=== PATIENT | female | born 1985 | race Caucasian/White ===

== ENCOUNTER 2024-05-31 02:59 | Inpatient (IN) | payer BC, SELFPAY ==
[2024-05-30 20:47] VITALS: BP 111/77
[2024-05-30 21:31] LABS: % Basophils 0.4 % (0-2); % Eosinophils 0.4 % (0-6); % Immature Granulocytes 0.4 % (0-0.5); % Lymphocytes 22.4 % (20.5-51.1); % Monocytes 12.9 % (1.7-9.3); % Neutrophils 63.5 % (42.2-75.2); Absolute Monocytes 0.6 10^3/uL (0.1-0.6); Hematocrit 33.7 % (37.0-47.0); Hemoglobin 12.6 g/dL (12.0-16.0); Mean Corp Hgb Conc. 37.4 g/dL (33.0-37.0); Mean Corpuscular Hgb 37.8 pg (27.0-31.0); Mean Corpuscular Volume 101.2 fL (81.0-99.0); Mean Platelet Volume 11.5 fL (7.4-10.4); Nucleated Red Blood Cells % 0 %; Platelet Count 90 10^3/uL (130-400); Red Blood Cell Count 3.33 10^6/uL (4.20-5.40); Red Cell Dist. Width 16.5 % (11.5-14.5); White Blood Cell Count 4.7 10^3/uL (4.8-10.8)
[2024-05-30 21:42] LABS: HCG, Serum Qualitative Screen Negative
[2024-05-30 21:56] LABS: INR 1.49; PT 17.8 Sec (11.4-14.6)
[2024-05-30 21:57] LABS: ALT (SGPT) 52 U/L (0-35); AST (SGOT) 268 U/L (14-36); Albumin 3.2 g/dl (3.5-5.0); Alkaline Phosphatase 160 U/L (38-126); Blood Urea Nitrogen 5 mg/dl (7-17); Calcium 8.6 mg/dl (8.4-10.2); Carbon Dioxide 30 mmol/L (22-30); Chloride 87 mmol/L (98-107); Glucose 93 mg/dl (70-99); Potassium 2.7 mmol/L (3.5-5.1); Sodium 128 mmol/L (135-145); Total Bilirubin 21.6 mg/dl (0.2-1.3); Total Protein 6.1 g/dl (6.3-8.2); eGFR > 60.00
[2024-05-30 22:16] VITALS: BP 107/73
--- NOTE | 2024-05-30 22:30 | EDRN ---
Patient roomed, went in to see patient and reviewed blood work, informed Dr. Hatch of the abnormal labs the patient has and patients status, he will be in to see her.
[2024-05-30 22:41] VITALS: BMI 25.8
[2024-05-30 23:00] VITALS: BP 97/64
[2024-05-30] MEDS: NSS 500 IV (23:20)
[2024-05-30] MEDS: THIAMINE INJECTION 100 MG IV (23:21)
[2024-05-30 23:43] LABS: Ammonia 10 umol/L (9-30)
[2024-05-30 23:45] LABS: Lipase 401 U/L (23-300); Magnesium 1.7 mg/dl (1.6-2.3)
[2024-05-30] MEDS: KCL 270 MEQ IV (23:45)
[2024-05-30] MEDS: FOLVITE 50.2 MG IV (23:45)
[2024-05-31] VITALS (22 sets, daily range): BP systolic 86–112; BP diastolic 57–80; BMI 25.8; BMI 25.7
--- NOTE | 2024-05-31 00:31 | ED.GENMED ---
History of Present Illness
General
Chief Complaint: Dizziness
Source: patient, records and spouse
Exam Limitations: none
Time Seen by Provider: 05/30/24 22:27
Nursing documentation reviewed up to this point in time: agreed with
History of Present Illness
History of Present Illness:
38-year-old female with past medical history of alcohol abuse who presents to the emergency room for evaluation of jaundice, nausea, vomiting. Patient reports that she had a distant history of alcohol use and was sober for 2 years but over the past
few months has relapsed and has been drinking quite heavily. She says that about a week ago she noticed that she was becoming jaundiced; she says she stopped drinking at that point and has not had alcohol in the past week. She says that over the
past week jaundice has become more pronounced and she has had nausea, vomiting; she says she is having difficulty keeping food or liquids down. She says that she has noticed dark urine. She says that she is having some lightheadedness. She says
that she has had this in the past related to 'liver problems' related to alcohol use. She denies any abdominal pain. She denies any fevers or chills. She denies any diarrhea. She denies any other complaints on review of systems.
Review of Systems
Review of Systems
All Other Systems: ROS reviewed and negative except as documented in HPI and ROS
Constitutional: Reports fatigue; Denies fever or chills
Respiratory: Denies cough or trouble breathing
Cardiac: Denies chest pain
ABD/GI: Reports abdominal pain, nausea and vomiting; Denies diarrhea
: Reports dark urine; Denies dysuria or flank pain
Musculoskeletal: Denies neck pain or back pain
Neurological: Reports dizzy; Denies headache
Phy Exam
Physical Exam
Physical Exam:
General: Awake, alert, oriented
Head: Normocephalic, atraumatic
Eyes: Scleral icterus; pupils equal round and reactive to light bilaterally
Throat: Airway intact, dry mucous membranes
Neck: Trachea midline, supple without meningismus
Lungs: Clear to auscultation bilaterally, no wheezing, rales, rhonchi
Heart: Regular rate and rhythm, no murmurs, gallops, or rubs
Abd: Soft, non distended, mild right upper quadrant tenderness, palpable hepatomegaly
Neuro: No gross deficits
Skin: Jaundiced
Extremities: Trace edema on the ankles, extremities are warm well-perfused
Scores
Heart Failure Risk
Heart Failure Risk Score: Not Applicable
Heart Score for Chest Pain Patients
STEMI patient?: Not applicable
Withdrawal Assessment of Alcohol
Withdrawal Assessment Completed?: Not applicable
Course
Orders/Labs/Results
Orders:
Orders
05/30/24 20:52
Electrocardiogram (*1) Urgent
Reason for Study: Vertigo / Dizzy
EKG- Treatment ONCE
Test Result ONCE
05/30/24 21:11
Alcohol Urgent
Complete Blood Count/With Diff Urgent
Comprehensive Metabolic Panel Urgent
HCG, Serum Qualitative Screen Urgent
Lipase Urgent
Comment: ADD ON
Magnesium Urgent
Comment: ADD ON
Prothrombin Time Urgent
05/30/24 23:00
FOLic ACID [Folvite] 1 mg 0.9% Sodium Chloride 50 ml [Nss] 50 ml IV ONCE
Flush (0.9% Sodium Chloride) [Flush (Nss)] See Dose Instructions IV PER PROTOCOL
05/30/24 23:09
Add On- LAB Urgent
Tests Added?: lipase, magnesium
0.9% Sodium Chloride 500 ml [Nss] 500 ml IV BOLUS
Thiamine Injection 100 mg IV NOW STA
05/30/24 23:13
Potassium Chloride [KCl] 40 meq 0.9% Sodium Chloride 250 ml [Nss] 250 ml IV NOW
05/30/24 23:17
Ammonia Urgent
05/31/24 00:00
US Abdomen Complete/Upper Urgent
Reason For Exam: jaundice
05/31/24 00:32
Add On- LAB Urgent
Tests Added?: alcohol level
05/31/24 01:23
CT Abd/pelvis Angio W/wo Iv Urgent
Comment:
Reason For Exam: jaundice, findings c/f portal vein thrombus on US
05/31/24 01:39
GASTROINTESTINAL CONSULT Urgent
Consulting Provider: Lyudmila Stroud
Was physician already notified: Yes
Abnormal Lab Results
05/30/24
21:11
WBC 4.7 L 10^3/uL
(4.8-10.8)
RBC 3.33 L 10^6/uL
(4.20-5.40)
Hct 33.7 L %
(37.0-47.0)
MCV 101.2 H fL
(81.0-99.0)
MCH 37.8 H pg
(27.0-31.0)
MCHC 37.4 H g/dL
(33.0-37.0)
RDW 16.5 H %
(11.5-14.5)
Plt Count 90 L 10^3/uL
(130-400)
MPV 11.5 H fL
(7.4-10.4)
Absolute Lymphs (auto) 1.0 L 10^3/uL
(1.2-3.4)
Monocytes % 12.9 H %
(1.7-9.3)
PT 17.8 H Sec
(11.4-14.6)
Sodium 128 L mmol/L
(135-145)
Potassium 2.7 L* mmol/L
(3.5-5.1)
Chloride 87 L mmol/L
(98-107)
BUN 5 L mg/dl
(7-17)
Total Bilirubin 21.6 H* mg/dl
(0.2-1.3)
AST 268 H U/L
(14-36)
ALT 52 H U/L
(0-35)
Alkaline Phosphatase 160 H U/L
(38-126)
Total Protein 6.1 L g/dl
(6.3-8.2)
Albumin 3.2 L g/dl
(3.5-5.0)
Lipase 401 H U/L
(23-300)
05/30/24 21:11
05/30/24 21:11
Vital Signs
Initial and Last Documented VS:
Initial Vital Signs
Temp Pulse Resp BP Pulse Ox
36.8 C 83 18 111/77 98
05/30/24 20:47 05/30/24 20:47 05/30/24 20:47 05/30/24 20:47 05/30/24 20:47
Last Documented Vital Signs
Temp Pulse Resp BP Pulse Ox
36.8 C 85 16 97/64 96
05/30/24 20:47 05/30/24 23:15 05/30/24 23:15 05/30/24 23:00 05/30/24 23:15
MDM/Problems Addressed
Differential Diagnosis Includes:
Alcoholic hepatitis, biliary obstruction, malignancy, cirrhosis
MDM/Problems Addressed:
38-year-old female presents for evaluation of jaundice associate with nausea and vomiting in the setting of recent alcohol use. Vitals normal. Exam as above. Will check labs including a CBC and a CMP. Check INR. Will check lipase and hCG.
Check an EKG. Check upper abdominal ultrasound. Reassess after the above.
Labs reviewed: CBC shows thrombocytopenia with a platelet count of 90. INR normal. CMP shows hyponatremia, significant hypokalemia with a potassium of 2.7. T. bili 21.6, AST and ALT elevated to 268/52 respectively. Lipase 401, marginally
elevated. hCG negative. Awaiting ultrasound. Clinical suspicion at this point is acute alcoholic hepatitis. Replete potassium, added magnesium. Treat with thiamine and folate. Fluids in progress.
Ultrasound called back by radiology: Positive for portal venous thrombosis. Will follow-up with CTA with delayed phase imaging. Case discussed with GI�treatment with anticoagulation in the setting of thrombocytopenia will depend on acuity of
thrombus, will hold anticoagulant for now pending CTA they will evaluate in a.m. regarding need for anticoagulation. Case discussed with hospitalist for admission.
Chronic conditions affecting care:
Alcohol abuse
*Radiology
Radiology exam reviewed: radiology read reviewed
*Pulse Oximetry
Patient hypoxic: no
*EKG
Interpreted by ED Provider?: Yes
Heart Rate: 87
Rate: normal
Rhythm: sinus
[place]: normal axis
Interval: normal interval
QRS Pattern: normal QRS
Ischemia: non-specific ST changes
*Critical Care Note
Total Time (30-74mins, 75-104mins- exclusive of procedures): Not Applicable
Data Reviewed
Review of Other/Old Records Reveals: Labs and Records
Source: patient, records and spouse
Patient Management
Discussion with other providers: Hospitalist (Discussed with hospitalist) and [facility] (Discussed with gastroenterology)
Escalation/DeEscalation of care consider admission/obs:
Admission indicated
ED Attending Note
-
Portions of this chart may have been created with voice recognition software.� Occasional wrong word or��sound alike� substitutions may have occurred due to the inherent limitations of voice recognition software.
Discharge Plan
Departure
Patient Disposition: Admit
Date of Disposition: 05/31/24
Time of Disposition: 01:44
Admit to doctor: Anneliese
Presentation/result/management discussed w/ accepting MD/DO: Hospitalist
Discharge Problem:
Alcoholic hepatitis, Portal vein thrombosis
Prescriptions:
No Action
trazodone 50 mg Tablet
50 mg PO HS
hydroxyzine HCl 25 mg Tablet
25 mg PO PRN PRN (Reason: anxiety)
Referrals:
KAYE GANT MD [Family Provider] -
Interventions
Interventions:
*General Assessment Last Done: 05/30/24 20:47
*Neglect/Abuse Screening Last Done: 05/30/24 20:47
ED- Fall Risk Assessment Last Done: 05/30/24 23:03
ED- Neurological Assessment Last Done: 05/30/24 23:03
ED- Cardiac Assessment Last Done: 05/30/24 23:03
Discharge Date and Time
Print Language: CROATIAN
[2024-05-31 01:40] LABS: Alcohol None Detected
--- NOTE | 2024-05-31 02:25 | HPS.HSE ---
Addendum entered and electronically signed by Papi Coy MD 05/31/24 12:53:
CT Abd/pelvis Angio W/wo Iv
IMPRESSION:
- Portal veins opacify normally with no evidence of portal venous thrombosis
1).There is mild hazy peripancreatic inflammatory stranding with small volume ascites along the anterior pararenal fascia bilaterally suggesting pancreatitis
2).There is hepatomegaly (22cm) with diffuse fatty infiltration of the liver as well as a nodular appearance of the liver on arterial phase imaging suggesting superimposed cirrhotic changes
There is associated splenomegaly with splenic length of 15 cm such as may be seen with portal hypertension
3). Small volume ascites in the pelvis
Addendum entered and electronically signed by Papi Coy MD 05/31/24 12:47:
Correction of typo
Hepatitis with reverse AST and ALT ratio suspect acute ETOH hepatitis Other DDX: acute PVT
Maddrey's DF 39 ( PT 17.8, TB 21,6 ) <del>0</del>)
- poor prognosis
- To consider steroids ( indicate Glucocorticoid if DF > 32 ) <del>0</del>
- GI consulted
Original Note:
Family Physician
-
Family Physician: KAYE GANT MD
Chief Complaint
-
jaundice
History of Present Illness
HPI
38F HX ETOH use disorder seen at ER for evalaution of Jauncice.
- Noted jaundice since last week and also very dark urine
- reports N/V, unable to keep the food and liquid down
- Stopped ETOH last week; NEG ETOH at ER
- reports relapse ETOH use disordr for past few months after sober for 2 yrs
She denies any abdominal pain.
She denies any fevers or chills.
She denies any diarrhea.
Medical History
Past Medical History
Past Medical History: Reports Other
Additional Past Medical History:
ETOH use disorder
HX suggestive of ETOH Liver disporder
Past Surgical History: Reports Other
Social History
Alcohol: Daily (reports relapse ETOH use disordr for past few months after sober for 2 yrs)
Family History
Family History: Not pertinent
Allergies / Home Medications
Allergies reflects when Allergies were last updated in [facility].
Home Medications with original date entered in [facility]
Allergy/Medication List:
Allergies
Allergy/AdvReac Type Severity Reaction Status Date / Time
No Known Allergies Allergy Unverified 08/17/22 16:43
Home Medications
hydroxyzine HCl 25 mg tablet 25 mg PO PRN PRN anxiety 05/30/24
trazodone 50 mg tablet 50 mg PO HS 05/30/24
Review of Systems
-
Constitutional: Reports No Symptoms
EENT: Reports Other (jaundice )
Respiratory: Reports No Symptoms
Cardiac: Reports No Symptoms
Abdomen/GI: Reports No Symptoms
: Reports No Symptoms
Musculoskeletal: Reports No Symptoms
Skin: Reports See HPI
Neurological: Reports No Symptoms
Endocrine: Reports No Symptoms
Hematologic/Lymphatic: Reports No Symptoms
Psych: Reports No Symptoms
Physical Exam
Vital Signs
Vital Signs
Temp Pulse Resp BP Pulse Ox
98.2 F 85 16 97/64 96
05/30/24 20:47 05/30/24 23:15 05/30/24 23:15 05/30/24 23:00 05/30/24 23:15
Physical Exam
General: No Apparent Distress, Comfortable and Conversant
HEENT: Other (icteric sclera )
Respiratory: Clear
Cardiac: S1/S2 and Regular Rhythm
GI: Soft, Non Tender, Non Distended and Normal Bowel Sounds
Rectal: Deferred by Provider
Musculoskeletal: No Edema
Skin: Warm and Dry
Neuro: AO x 3
Psych: Calm
Laboratory Results
-
05/30/24 21:11
05/30/24 21:11
Laboratory Results
PT 17.8 Sec (11.4-14.6) H 05/30/24 21:11
INR 1.49 05/30/24 21:11
Total Bilirubin 21.6 mg/dl (0.2-1.3) H* 05/30/24 21:11
AST 268 U/L (14-36) H 05/30/24 21:11
ALT 52 U/L (0-35) H 05/30/24 21:11
Alkaline Phosphatase 160 U/L (38-126) H 05/30/24 21:11
Lipase 401 U/L (23-300) H 05/30/24 21:11
Data Reviewed
-
Diagnostic Radiology: Report Reviewed by me
Lab Data: Labs Reviewed by me
Impression/Plan
-
Reviewed VS: Afebrile HR 85 BP 97/64
Data
WC 4.7
Hgb 12.6 is at baseline
MCV 101
Plt 90 - was 123 in 2021
Na 128
K 2.7
Cl 87
unremarkable Cr and eGFR
INR 1.49
TB 21 - was 1.0 in 2021
AST 268
ALT 52
Lipase 401
Alb 3.2
NEG ETOH
RUQ US
main PVT , enlarged liver , enlarged spleen
No ascites
NO Prior hospitalist admission:
ASSESSMENT & PLAN
Hepatitis with reverse AST and ALT ratio suspect acute ETOH hepatitis Other DDX: acute PVT
Maddrey's DF 39 ( PT 17.8, TB 210)
- poor prognosis
- To consider steroids ( indicate Glucocorticoid if DF > 320
- GI consulted
Jaundice , Hyperbilirubinemia
Sono POS for main PVT
- CTA eval for acuity of thrombus,to decide in AM re anticoagulation
- await GI evaluation
Severe hypokalemia s/p IV K Richard 40 at ER due to N/V
- check Mg
- f/u K in AM
Last ETOH : 10 days ago
Relapse ETOH use disorder for past few months after sober for 2 yrs
- MSAS hi risk protocol
- Psych consult
Acute pancytopenia due to ETOH related BM suppression
Low platelets
- trend CBC
Hypotension suspect due to chr ETOH Liver plus volume depeltion
- Observe BP
- IVF
DVT Px: SCD
Code: Full
IMU
[2024-05-31] MEDS: NSS 1000 IV ×2 (03:56→17:31)
[2024-05-31 06:47] LABS: INR 1.75; PT 20.3 Sec (11.4-14.6)
--- NOTE | 2024-05-31 06:50 | EDRN ---
Patients BP has started trending down, last two pressures was 89/57 with a map of 68 and then 86/58 with a map of 68, patient has normal saline running at 60ml/hr, robertoer dawooded Shreya Cunningham NP who is covering telemetry, she is reviewing chart
and awaiting orders.
[2024-05-31 07:00] LABS: Hematocrit 28.6 % (37.0-47.0); Hemoglobin 10.6 g/dL (12.0-16.0); Mean Corp Hgb Conc. 37.1 g/dL (33.0-37.0); Mean Corpuscular Hgb 37.3 pg (27.0-31.0); Mean Corpuscular Volume 100.7 fL (81.0-99.0); Mean Platelet Volume 12.4 fL (7.4-10.4); Platelet Count 61 10^3/uL (130-400); Red Blood Cell Count 2.84 10^6/uL (4.20-5.40); Red Cell Dist. Width 16.5 % (11.5-14.5); White Blood Cell Count 3.7 10^3/uL (4.8-10.8)
--- NOTE | 2024-05-31 07:12 | EDRN ---
Report to KODY Petty
[2024-05-31] MEDS: ProAmatine 5 MG PO ×3 (07:22→17:30)
[2024-05-31] MEDS: FOLVITE 1 MG PO (07:22)
[2024-05-31] MEDS: THIAMINE INJECTION 200 MG IV ×3 (07:22→23:54)
[2024-05-31 07:23] LABS: ALT (SGPT) 43 U/L (0-35); AST (SGOT) 200 U/L (14-36); Albumin 2.4 g/dl (3.5-5.0); Alkaline Phosphatase 120 U/L (38-126); B-Hydroxybutyrate 1.01 mmol/L (0.02-0.27); Blood Urea Nitrogen 6 mg/dl (7-17); Calcium 7.7 mg/dl (8.4-10.2); Carbon Dioxide 29 mmol/L (22-30); Chloride 95 mmol/L (98-107); Estimated Creatinine Clearance > 125 ml/min; GGTP 325 U/L (12-43); Glucose 74 mg/dl (70-99); Lipase 252 U/L (23-300); Magnesium 1.6 mg/dl (1.6-2.3); Potassium 3.2 mmol/L (3.5-5.1); Sodium 131 mmol/L (135-145); Total Bilirubin 18.6 mg/dl (0.2-1.3); Total Protein 4.9 g/dl (6.3-8.2); eGFR > 60.00
--- NOTE | 2024-05-31 07:39 | EDRN ---
the pt was received from previous evening or night nurse supervisor RN, the pt is resting in stretcher in the lowest position, side rails up x2, call marquis within reach, HOB elevated, the pts blood pressure was running low with systolic pressure in the 80's, per Shreya
Octavio ORTHOPAEDIC NURSE this RN administered Midodrine, no c/o chest pain, no c/o SOB, AM medications administered, pt passed swallow screen, no c/o N/V/D, AM labs came back and provider notified, will continue to monitor the pt closely
[2024-05-31] MEDS: KCL ELIXIR 40 MEQ PO (08:20)
--- NOTE | 2024-05-31 08:24 | EDRN ---
PO potassium administered and tolerated by the pt
--- NOTE | 2024-05-31 10:15 | EDRN ---
provider changed the pts diet from clear liquid to regular diet, menu was given to the pt
--- NOTE | 2024-05-31 10:20 | W.PN.UPDATE ---
Update Note
Progress Note Update
Seen and examined independent of overnight physician. States of relapse since beginning of summer drinks multiple cans of white claw on daily basis. Denies any other's type of alcohol intake. Had a similar incident 4 years ago and was admitted to
[facility] for prolonged period of time. States of worsening jaundice for the past 1 week with change in color of urination and skin color. States of pruritus on the chest. States of some mild right upper quadrant abdominal pain. No nausea or
vomiting. Denies any hematemesis or melanotic stools.
General: No Apparent Distress, Comfortable and Conversant, jaundiced
HEENT: Other (icteric sclera )
Respiratory: Clear
Cardiac: S1/S2 and Regular Rhythm
GI: Soft, Non Tender, Non Distended and Normal Bowel Sounds
Rectal: Deferred by Provider
Musculoskeletal: No Edema
Skin: Warm and Dry, mild petechial rash on chest
Neuro: AO x 3
Psych: Calm
Suspected acute alcoholic hepatitis secondary to alcohol abuse
Alcohol abuse on a daily basis
Early onset of liver cirrhosis
-poor prognosis
-Follow CT abdomen pelvis imaging noted with hepatomegaly with fatty infiltration of the liver as well as nodular appearance. Associate splenomegaly with portal hypertension. Small volume ascites in the pelvis. Fortunately no PVT noted on final
CAT scan results.
-INR elevated 1.75. PT elevated. T. bili with mild downtrend. Mild improvement in AST.
-Elevated DF. Consider prednisolone. Will defer to GI. Long-term prognosis guarded
-Counseled on alcohol cessation. UDS pending.
Severe hypokalemia
Replete and monitor.
Last ETOH : 10 days ago
Relapse ETOH use disorder for past few months after sober for 2 yrs
- MSAS. Low risk of withdrawal at this point.
Acute pancytopenia due to ETOH related BM suppression
Low platelets
- trend CBC. Transfuse for hemoglobin less than 7. Check anemia panel.
Mild hyponatremia likely secondary dehydration and or alchol abuse and low solute intake
� Improving with IV fluids
Mild hypotension
-started on midodrine. Wean off if BP improves with IVF
DVT Px: SCD
Code: Full
--- NOTE | 2024-05-31 10:49 | EDRN ---
the pt pressed the call marquis and this RN entered the pts room, the pt stated that she needed to urinate, the pt was able to ambulate to the bathroom and back to the stretcher with no issues, the pt was able to provide a urine sample that was sent to
the lab, the pt is now resting in stretcher in the lowest position, side rails up x1, HOB elevated, no s/s of distress, NSS currently still running at 100cc/hour, VS WNL, no s/s of distress, Jovanny from [facility] currently at the pts bedside, the pt also
ordered breakfast, will continue to monitor the pt closely
[2024-05-31 11:05] LABS: Phosphorus 3.6 mg/dl (2.5-4.5)
[2024-05-31 11:18] LABS: Iron 68 ug/dl (37-170)
--- NOTE | 2024-05-31 11:24 | CON.GI ---
Addendum entered and electronically signed by Arjun Menendez MD 05/31/24 17:59:
I saw and examined the patient.
The SENIOR PROCUREMENT MANAGER or PA's note was reviewed and I agree with the note.
Comment: 38yo female with hx EtOH cirrhosis, seen by Dr Ruiz at [facility] following a prolonged hospitalization in 2019. Following that she quit EtOH and was stable from liver standpoint. She resumed drinking at beginning of this summer. Then she
quit about two weeks ago, but noted jaundice last week, weakness, lack of appetite. Labs notable for Bili 21, INR 1.7, Na 128. Her DF calculates to 52. She denies GI bleeding, change in mental status. She had varices noted on prior EGD but no
bleeding. Denies hx paracentesis.
REC:
Given her high DF, will start prednisolone to rx acute on chronic EtOH hepatitis.
No signs of infection
Advance diet as tolerated. If able to keep POs, and labs stable, can d/c with OP follow up with Dr Ruiz (and [facility] if she wishes local f/u)
Reinforced need to EtOH cessation. She is considering OP rehab with her counselor, which I supported
Check f/u LFTs, INR
Addendum entered and electronically signed by OLVIN Lees 05/31/24 16:37:
reviewed with Dr. menendez will add Prednisolone 40mg daily. Add hepatitis panel
Original Note:
Consultation
-
Date/Time Consultation Requested: 05/31/24 0130
Date/Time Consultation Performed: 05/31/24 1120
Requesting Provider: Jalen Hatch MD
Performing Provider: OLVIN Osborne, Arjun Menendez MD
Reason for Consultation: ETOH hepatitis /pancreatitis
Medical History
Chief Complaint / HPI
Chief Complaint: jaundice
History of Present Illness:
Pt is a 38yo with hx ETOH abuse presents to ER with jaundice, nausea, and vomiting. She admits to hx ETOH abuse with prior ETOH hepatitis/pancreatitis prior to 2019. She improved and did not recall need for steroids at that time. She admits to
recent relapse over last few months to no specific trigger. On admission she is noted with marked abnormal labs with Na 128, K 2.8, bili 21.6, AST 268, ALT 52, alk phos 160, hbg 10.6, MCV 100.7, platelets 61,000, INR 1.7, albumin 3.2, lipase 401.
US with HSM with fatty liver, CT with pancreatitis, hepatomegaly with nodular liver with concern for cirrhosis. Hepatosplenomegaly may be seen with portal HTN but no PVT and small volume ascites.
Pt admits to dark urine and decreased appetite but admits to feeling better this am. She denies dysphagia, GERD, abdominal pain, diarrhea, constipation, blood or black in stools.
Past Medical History
Past Medical History: Other (ETOH abuse with prior ETOH hepatitis/pancreatitis in past )
Social History
Tobacco: Non-Smoker
Alcohol: Chronic Alcoholic (last 1 week ago. admits to drinking high ETOH white claws up to 8 per day )
Drug: None
Personal:
Living: With Family
Employment: Employed
Family History
Family History: Reviewed & Not Pertinent
Allergies / Home Medications
Allergy/AdvReac Type Severity Reaction Status Date / Time
No Known Allergies Allergy Unverified 08/17/22 16:43
�Medication �Instructions �Recorded
hydroxyzine HCl 25 mg tablet 50 mg PO DAILYPRN PRN anxiety 05/30/24
trazodone 50 mg tablet 50 mg PO HS 05/30/24
Semaine Uti Releif 1 cap PO DAILY 05/31/24
bismuth subsalicylate 262 mg 2 tab PO DAILYPRN PRN gerd.stomach 05/31/24
chewable tablet (Pepto-Bismol) issuses
melatonin 3 mg tablet 6 mg PO HS 05/31/24
omeprazole 20 mg tablet,delayed 20 mg PO DAILY 05/31/24
release
peg 400-propylene glycol (PF) 0.4 1 drp BOTH EYES TIDPRN PRN dryness 05/31/24
%-0.3 % eye drops in a dropperette
(Systane (PF))
Review of Systems
-
History Source: Patient and Family
Constitutional: Reports Fatigue and Other (jaundice )
EENT: Reports No Symptoms
Respiratory: Reports No Symptoms
Abdomen/GI: Reports Nausea and Vomiting
: Reports Dark Urine
Musculoskeletal: Reports No Symptoms
Skin: Reports No Symptoms
Neurological: Reports Weakness
Endocrine: Reports No Symptoms
Hematologic/Lymphatic: Reports Bleeding
Vital Signs
Temp Pulse Resp BP Pulse Ox
97.8 F 69 18 108/80 99
05/31/24 11:07 05/31/24 11:07 05/31/24 11:07 05/31/24 11:07 05/31/24 11:07
Physical Exam
Exam
General: Well Developed, Well Nourished and No Apparent Distress
HEENT: Normocephalic and Other (jaundice )
Respiratory: Clear
Cardiac: Regular Rhythm and Other (no edema )
GI: Soft, Non Tender and Distended (minimal )
Musculoskeletal: No Clubbing and No Cyanosis
Skin: Warm and Dry
Neuro: Awake, Alert and AO x 3
Psych: Calm
Results
WBC 3.7 10^3/uL (4.8-10.8) L 05/31/24 06:25
Hgb 10.6 g/dL (12.0-16.0) L 05/31/24 06:25
Hct 28.6 % (37.0-47.0) L 05/31/24 06:25
MCV 100.7 fL (81.0-99.0) H 05/31/24 06:25
Plt Count 61 10^3/uL (130-400) L D 05/31/24 06:25
Absolute Neuts (auto) 3.0 10^3/uL (1.4-6.5) 08/19/24 21:11
PT 20.3 Sec (11.4-14.6) H 05/31/24 06:25
INR 1.75 05/31/24 06:25
Sodium 131 mmol/L (135-145) L 05/31/24 06:25
Potassium 3.2 mmol/L (3.5-5.1) L 05/31/24 06:25
Chloride 95 mmol/L (98-107) L 05/31/24 06:25
Carbon Dioxide 29 mmol/L (22-30) 05/31/24 06:25
BUN 6 mg/dl (7-17) L 05/31/24 06:25
Creatinine 0.6 mg/dL (0.6-1.0) 05/31/24 06:25
Calcium 7.7 mg/dl (8.4-10.2) L 05/31/24 06:25
Total Bilirubin 18.6 mg/dl (0.2-1.3) H* 05/31/24 06:25
AST 200 U/L (14-36) H 05/31/24 06:25
ALT 43 U/L (0-35) H 05/31/24 06:25
Alkaline Phosphatase 120 U/L (38-126) 05/31/24 06:25
Lipase 252 U/L (23-300) 05/31/24 06:25
Diagnostic Image Results:
05/31 US with with HSM with diffuse fatty liver
05/31 CT There is mild hazy peripancreatic inflammatory stranding with small volume ascites along the anterior pararenal fascia bilaterally suggesting pancreatitis
2).There is hepatomegaly (22cm) with diffuse fatty infiltration of the liver as well as a nodular appearance of the liver on arterial phase imaging suggesting superimposed cirrhotic changes
There is associated splenomegaly with splenic length of 15 cm such as may be seen with portal hypertension but no PVT
3). Small volume ascites in the pelvis
Prior GI Procedures:
EGD: none
Colonoscopy: [address] with cecum colitis
- The examined portion of the ileum was normal.
- Normal mucosa in the entire examined colon. Biopsied.
- The distal rectum and anal verge are normal on
retroflexion view.
Assessment / Plan
-
Pt is a 38yo with hx ETOH abuse presents to ER with jaundice, nausea, and vomiting. She admits to hx ETOH abuse with prior ETOH hepatitis/pancreatitis prior to 2019. She improved and did not recall need for steroids at that time. She admits to
recent relapse over last few months to no specific trigger. On admission she is noted with marked abnormal labs with Na 128, K 2.8, bili 21.6, AST 268, ALT 52, alk phos 160, hbg 10.6, MCV 100.7, platelets 61,000, INR 1.7, albumin 3.2, lipase 401.
US with HSM with fatty liver, CT with pancreatitis, hepatomegaly with nodular liver with concern for cirrhosis. Hepatosplenomegaly may be seen with portal HTN but no PVT and small volume ascites.
-ETOH hepatitis +/- underlying cirrhosis
-ETOH pancreatitis
-hx prior ETOH hepatitis/pancreatitis 2019 with treatment at [facility]- did not recall steroid use in past
-electrolyte imbalance (hyponatremia/hypokalemia)
-thrombocytopenia
-hypoalbuminemia
-coagulopathy
PLAN:
concern for ETOH hepatitis/pancreatitis +/- cirrhosis
will review with Dr. Menendez for starting prednisolone -- no current sign of infection and DF 52.2 based on 05/31 with with control on
MELD 3.0 28
pt and family agree with compliance for labs if needed after discharge
replete K per hospitalist
if steroids started will need lille score day 7 of therapy
discussed to consider follow up with hepatology at [facility] that she has seen in past
push nutrition resume diet and add supplement BID
avoid hepatotoxic medications and supplement and MUST AVOID ALL ALCOHOL
cont to trend labs with daily CBC, comp and INR
cont thiamine and folate
counseled on severity of disease process
updated spouse
-
-
Thank you for consultation and allowing me to participate in the patient's care. Please call the traffic division commanding officer GI physician during the after hours with any questions or concerns.
[2024-05-31 11:30] LABS: Amphetamines Negative (Negative); Barbiturates Negative (Negative); Benzodiazepines Negative (Negative); Buprenorphine Negative (Negative); Cocaine Negative (Negative); Marijuana Negative (Negative); Methadone Negative (Negative); Methamphetamines Negative (Negative); Opiates Negative (Negative); Phencyclidine Negative (Negative); Tricyclic Antidepressants Negative (Negative)
[2024-05-31 11:31] LABS: Percent Saturation 41 % (20-50); Total Iron Binding Capacity 163 ug/dl (265-497)
--- NOTE | 2024-05-31 11:53 | CM ---
CM reviewed chart.
CM introduced self and role. Spoke with patient at bedside.
She lives with her .
Dx: alcohol induced hepatitis, portal vein thrombosis
Patient is independent.
She drives. will provide transportation on discharge.
She lives in a multilevel home. She has 3 steps to enter.
She has family and friends for support.
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
She denied any +SDOH's.
PCP: Dr. Arjun Lucero
Pharmacy: [facility] in [place]
DISCHARGE DISPOSTION: CM consult placed for alcohol consumption. CM spoke with [facility] because patient was agreeable to talk with them about different resources. Patient to discharge to home when medically stable.
--- NOTE | 2024-05-31 13:25 | EDRN ---
provider was notified of the pts low blood pressure of 89/65 (73), no new orders received due to the pts MAP being greater than 65
[2024-05-31 13:50] LABS: Folate 5.6 ng/ml (2.76-20)
[2024-05-31 14:48] LABS: Vitamin B12 856 pg/ml (239-931)
[2024-05-31] MEDS: NSS IV (14:59)
[2024-05-31] MEDS: PRELONE 40 MG PO (17:28)
[2024-05-31] MEDS: ATARAX 25 MG PO (21:08)
[2024-05-31] MEDS: DESYREL 25 MG PO (22:23)
--- NOTE | 2024-06-01 02:57 | DOWNTIME ---
There was a [employer] Downtime on 06/01/2024 from 0100 to 06/01/2024 at 0252. Downtime documentation of patient's care, including medication administrations, has been reconciled in the electronic record per guidelines. Refer to the
patient's paper chart under the miscellaneous tab to see printed paper medication records and downtime forms.
[2024-06-01 03:30] VITALS: BP 103/68; BMI 26.1
[2024-06-01] MEDS: NSS 1000 IV ×3 (03:34→23:03)
[2024-06-01 07:00] VITALS: BP 97/65
[2024-06-01 07:04] LABS: PT 19.8 Sec (11.4-14.6)
[2024-06-01 07:46] LABS: ALT (SGPT) 53 U/L (0-35); AST (SGOT) 247 U/L (14-36); Albumin 2.9 g/dl (3.5-5.0); Alkaline Phosphatase 155 U/L (38-126); Blood Urea Nitrogen 8 mg/dl (7-17); Calcium 8.1 mg/dl (8.4-10.2); Carbon Dioxide 29 mmol/L (22-30); Chloride 98 mmol/L (98-107); Estimated Creatinine Clearance > 125 ml/min; Glucose 124 mg/dl (70-99); Potassium 3.7 mmol/L (3.5-5.1); Sodium 133 mmol/L (135-145); Total Bilirubin 21.5 mg/dl (0.2-1.3); eGFR > 60.00
[2024-06-01 07:55] LABS: % Basophils 0.4 % (0-2); % Eosinophils 0.2 % (0-6); % Immature Granulocytes 0.8 % (0-0.5); % Lymphocytes 14.1 % (20.5-51.1); % Monocytes 5.3 % (1.7-9.3); % Neutrophils 79.2 % (42.2-75.2); Absolute Lymphocytes 0.8 10^3/uL (1.2-3.4); Absolute Monocytes 0.3 10^3/uL (0.1-0.6); Absolute Neutrophils 4.2 10^3/uL (1.4-6.5); Hematocrit 34.2 % (37.0-47.0); Hemoglobin 12.5 g/dL (12.0-16.0); Mean Corp Hgb Conc. 36.5 g/dL (33.0-37.0); Mean Corpuscular Hgb 37.7 pg (27.0-31.0); Mean Platelet Volume 12.3 fL (7.4-10.4); Nucleated Red Blood Cells % 0 %; Platelet Count 90 10^3/uL (130-400); Red Blood Cell Count 3.32 10^6/uL (4.20-5.40); Red Cell Dist. Width 17.1 % (11.5-14.5); White Blood Cell Count 5.3 10^3/uL (4.8-10.8)
[2024-06-01] MEDS: KCL 40 MEQ PO (09:44)
[2024-06-01] MEDS: ProAmatine 5 MG PO ×3 (09:44→18:10)
[2024-06-01] MEDS: FOLVITE 1 MG PO (09:44)
[2024-06-01] MEDS: THIAMINE INJECTION 200 MG IV ×3 (09:44→23:03)
[2024-06-01] MEDS: PRELONE 40 MG PO (09:44)
--- NOTE | 2024-06-01 10:37 | W.PN.GI.CBS2 ---
Addendum entered and electronically signed by Arjun Menendez MD 06/01/24 14:28:
I saw and examined the patient.
The RESIDENT ATHLETIC TRAINER or PA's note was reviewed and I agree with the note.
Comment: No complaints. Denies abd pain. Feels tired.
ABD soft NTND
REC:
Biirubin remains elevated, INR slightly lower
Pt agreeable to stay one more day
Continue prednisolone 40mg daily
If labs relatively stable, OK for d/c tomorrow
Check repeat labs next week to calculate Lille score
Original Note:
Today's Communication / Plan
-
concern for ETOH hepatitis/pancreatitis +/- cirrhosis
Prednisolone started 05/31
DF: 05/31 52.2, 06/01 52.8
MELD 3.0 05/31 28, 06/01 [address] menendez for discharge today vs follow another day inpatient
will need Lille score after 7 day treatment on 06/08 -- labs slips given to patient
pt and family agree with compliance for labs if needed after discharge
OP follow up with hepatology - she is scheduled 07/13 at [facility]
I also scheduled her 07/06 11:30 with freddie Julio PA-C in our office
continue regular diet with supplement
avoid hepatotoxic medications and supplement and MUST AVOID ALL ALCOHOL
cont to trend labs with daily CBC, comp and INR
cont thiamine and folate
counseled on severity of disease process
updated spouse 05/31
Assessment / Plan
-
Pt is a 38yo with hx ETOH abuse presents to ER with jaundice, nausea, and vomiting. She admits to hx ETOH abuse with prior ETOH hepatitis/pancreatitis prior to 2019. She improved and did not recall need for steroids at that time. She admits to
recent relapse over last few months to no specific trigger. On admission she is noted with marked abnormal labs with Na 128, K 2.8, bili 21.6, AST 268, ALT 52, alk phos 160, hbg 10.6, MCV 100.7, platelets 61,000, INR 1.7, albumin 3.2, lipase 401.
US with HSM with fatty liver, CT with pancreatitis, hepatomegaly with nodular liver with concern for cirrhosis. Hepatosplenomegaly may be seen with portal HTN but no PVT and small volume ascites.
-ETOH hepatitis +/- underlying cirrhosis
-ETOH pancreatitis
-hx prior ETOH hepatitis/pancreatitis 2019 with treatment at [facility]- did not recall steroid use in past
-electrolyte imbalance (hyponatremia/hypokalemia)
-thrombocytopenia
-hypoalbuminemia
-coagulopathy
PLAN:
concern for ETOH hepatitis/pancreatitis +/- cirrhosis
Prednisolone started 05/31
DF: 05/31 52.2, 06/01 52.8
MELD 3.0 05/31 28, 06/01 [address] menendez for discharge today vs follow another day inpatient
will need Lille score after 7 day treatment on 06/08 -- labs slips given to patient
pt and family agree with compliance for labs if needed after discharge
OP follow up with hepatology - she is scheduled 07/13 at [facility]
I also scheduled her 07/06 11:30 with freddie Julio PA-C in our office
continue regular diet with supplement
avoid hepatotoxic medications and supplement and MUST AVOID ALL ALCOHOL
cont to trend labs with daily CBC, comp and INR
cont thiamine and folate
counseled on severity of disease process
updated spouse 05/31
Subjective
Subjective
Date of Service: June 01, 2024
04/29 brown stool on regular diet with supplement
Objective
Data Reviewed
Laboratory Data:
Laboratory Results
06/01/24 06:08
06/01/24 06:08
Laboratory Results
PT 19.8 Sec (11.4-14.6) H 06/01/24 06:09
INR 1.70 06/01/24 06:09
Phosphorus 3.6 mg/dl (2.5-4.5) 05/31/24 06:25
Magnesium 1.6 mg/dl (1.6-2.3) 05/31/24 06:25
Total Bilirubin 21.5 mg/dl (0.2-1.3) H* 06/01/24 06:08
AST 247 U/L (14-36) H 06/01/24 06:08
ALT 53 U/L (0-35) H 06/01/24 06:08
Alkaline Phosphatase 155 U/L (38-126) H 06/01/24 06:08
Lipase 252 U/L (23-300) 05/31/24 06:25
Vital Signs and I&O:
Vital Signs
Temp Pulse Resp BP Pulse Ox
97.5 F 60 18 97/65 100
06/01/24 07:00 06/01/24 07:00 06/01/24 07:00 06/01/24 07:00 06/01/24 07:00
I&O
05/31/24 06/01/24 06/02/24
06:59 06:59 06:59
Intake Total 1800 / 1800
Balance 1800 / 1800
Physical Exam
Physical Exam
HEENT: Moist mucous membranes and Other (jaundice)
Cardiology: Normal Sinus Rhythm
Pulmonary: Clear
GI: Soft, Distended (mild) and Non Tender
Extremities: No Edema
Neuro: Non Focal
[2024-06-01 11:00] VITALS: BP 95/63
--- NOTE | 2024-06-01 11:29 | W.PN.HOSP.TC ---
Today's Communication/Plan
-
Continue oral steroid
Continue midodrine for low BP
Trend labs
Assessment / Plan
Assessment / Plan
#Alcoholic hepatitis
#Chronic alcoholism
-Presented with AST/ALT > 2:1, RUQ US showing fatty liver, history of significant alcohol use with
-Mitzi's DF score was initially 52 with correlation to poor prognosis; states this is her second time
-GI was consulted and started the patient on 40 mg prednisone daily for alcoholic hepatitis
-Patient states that she feels better today though does have some pruritus, bilirubin 21.5
-GI following, recommend Lille score after 7 days of prednisolone (06/08)
Plan
-Continue with oral prednisone 40 mg daily through 06/08
-Continue B vitamin replacement for chronic alcohol use
-Avoid hepatotoxins, trend daily LFTs and INR
-Absolute alcohol cessation, patient educated
-Will need outpatient follow-up with GI
-Psych consult pending for alcohol abuse
#Pancytopenia
-Suspected to be alcohol induced bone marrow suppression, reduction of thrombopoietin with liver disease
-Initially was pancytopenic, this morning her white cell count and hemoglobin have improved to normal range
-Platelet count is also uptrending though does still remain low
-Suspect improvement with abstinence from alcohol
#Hypotension
-Blood pressure has been low to borderline low most of time here, suspect related to liver disease and volume depletion
-Was started on 3 times daily on admission, most recent BP 103/68 mmHg
-Suspect this will improve with increased oral intake and reduced inflammation of liver
DVT prophylaxis: SCD
Diet: House
CODE STATUS: Full
Anticipated Discharge: Within 24 hours
Subjective/Interval History
-
Date of Service: June 01, 2024
Seen and examined at the bedside. No acute events reported overnight.
She states that she has some pruritus though denies any other acute complaints including chest pain, nausea or vomiting, abdomen pain, shortness of breath, fevers or chills, diarrhea or constipation, dysuria, rashes.
She did have concerns about the potential irreversibility of her current condition. Has had a previous hospitalization for alcoholic hepatitis per her history.
Objective Data
-
Labs:
Laboratory Results
06/01/24 06/01/24
06:08 06:09
WBC 5.3
Hgb 12.5
Hct 34.2 L
Plt Count 90 L D
PT 19.8 H
INR 1.70
Sodium 133 L
Potassium 3.7
Chloride 98
Carbon Dioxide 29
BUN 8
Creatinine 0.6
Glucose 124 H
Calcium 8.1 L
Total Bilirubin 21.5 H*
AST 247 H
ALT 53 H
Alkaline Phosphatase 155 H
Vital Signs:
Vital Signs
Temp Pulse Resp BP Pulse Ox
97.5 F 60 18 97/65 100
06/01/24 07:00 06/01/24 07:00 06/01/24 07:00 06/01/24 07:00 06/01/24 07:00
I&O
05/31/24 06/01/24 06/02/24
06:59 06:59 06:59
Intake Total 1800 / 1800
Balance 1800 / 1800
Review of Systems
-
All other systems: Reviewed and negative
Physical Exam
-
General: Well Nourished, No Apparent Distress and Comfortable
HEENT: Normocephalic, Atraumatic, Moist Mucous Membranes and Other (Scleral icterus noted)
Respiratory: Clear to Auscultation and Non Labored Respirations
Cardiac: Regular Rhythm and S1/S2; Negative Murmur, Rub or Gallop
GI: Soft, Nontender (NT to deep RUQ palpation), Nondistended, Normal Bowel Sounds and No Hepatosplenomegaly
Musculoskeletal: No Clubbing, No Cyanosis and No Edema
Skin: Warm, Dry and Jaundice; Negative Rash
Neuro: AO x 3, Nonfocal/Grossly Intact and Central Nerve's Intact
Data Reviewed
-
Labs: Labs Reviewed by me and Discussed with Patient
[2024-06-01 15:08] VITALS: BP 105/73
--- NOTE | 2024-06-01 15:57 | CM ---
Patient seen bedside, reports no needs at this time. CM spoke with Geo from [facility], provided patient with outpatient resources. CM will continue to follow for all discharge planning needs.
Plan; return home with family, outpatient resources provided by [facility].
[2024-06-01 19:30] VITALS: BP 103/67
[2024-06-01 23:24] VITALS: BP 111/70
[2024-06-02] MEDS: MELATONIN 5 MG PO (00:18)
[2024-06-02 03:32] VITALS: BP 103/66
[2024-06-02] MEDS: MYLICON 80 MG PO (05:19)
[2024-06-02 05:25] VITALS: BMI 27.0
[2024-06-02 06:41] LABS: % Basophils 0.1 % (0-2); % Immature Granulocytes 1.1 % (0-0.5); % Lymphocytes 13.2 % (20.5-51.1); % Monocytes 8.4 % (1.7-9.3); % Neutrophils 77.2 % (42.2-75.2); Absolute Immature Granulocytes 0.1 10^3/uL (0-0.05); Absolute Monocytes 0.6 10^3/uL (0.1-0.6); Absolute Neutrophils 5.7 10^3/uL (1.4-6.5); Hematocrit 33.2 % (37.0-47.0); Hemoglobin 11.9 g/dL (12.0-16.0); INR 1.54; Mean Corp Hgb Conc. 35.8 g/dL (33.0-37.0); Mean Corpuscular Hgb 37.1 pg (27.0-31.0); Mean Corpuscular Volume 103.4 fL (81.0-99.0); Mean Platelet Volume 12.2 fL (7.4-10.4); Nucleated Red Blood Cells % 0 %; PT 18.6 Sec (11.4-14.6); Platelet Count 100 10^3/uL (130-400); Red Blood Cell Count 3.21 10^6/uL (4.20-5.40); Red Cell Dist. Width 17.5 % (11.5-14.5); White Blood Cell Count 7.4 10^3/uL (4.8-10.8)
[2024-06-02 07:00] VITALS: BP 107/70
[2024-06-02 07:05] LABS: ALT (SGPT) 51 U/L (0-35); AST (SGOT) 195 U/L (14-36); Albumin 2.6 g/dl (3.5-5.0); Alkaline Phosphatase 145 U/L (38-126); Blood Urea Nitrogen 10 mg/dl (7-17); Calcium 7.8 mg/dl (8.4-10.2); Carbon Dioxide 25 mmol/L (22-30); Chloride 104 mmol/L (98-107); Direct Bilirubin 17.8 mg/dl (0.0-0.4); Estimated Creatinine Clearance > 125 ml/min; Glucose 110 mg/dl (70-99); Potassium 3.9 mmol/L (3.5-5.1); Sodium 136 mmol/L (135-145); Total Bilirubin 19.8 mg/dl (0.2-1.3); Total Protein 5.8 g/dl (6.3-8.2); eGFR > 60.00
[2024-06-02] MEDS: THIAMINE INJECTION 200 MG IV (08:32)
[2024-06-02] MEDS: ProAmatine 5 MG PO ×2 (08:32→12:57)
[2024-06-02] MEDS: PRELONE 40 MG PO (08:33)
[2024-06-02] MEDS: FOLVITE 1 MG PO (08:33)
--- NOTE | 2024-06-02 10:31 | W.PN.HOSP.TC ---
Today's Communication/Plan
-
Continue daily steroid
Plan for labs on 06/08 for dynamic Lille
Absolute alcohol cessation, high protein nutrition
Addiction counseling following DC
Assessment / Plan
Assessment / Plan
#Alcoholic hepatitis
#Chronic alcoholism
-Presented with AST/ALT > 2:1, RUQ US showing fatty liver, history of significant alcohol use with
-Mitzi's DF score was initially 52 with correlation to poor prognosis; states this is her second time
-GI was consulted and started the patient on 40 mg prednisolone daily for alcoholic hepatitis
-Patient states that she feels better today though does have some pruritus
-GI following, recommend Lille score after 7 days of prednisolone (06/08)
-LFTs have improved with alcohol cessation and initiation of prednisolone
Plan
-Continue with oral prednisolone 40 mg daily for now
-Lab draw on 06/08 for dynamic Lille, assessment of steroid response
-Continue B vitamin replacement for chronic alcohol use
-Avoid alcohol and other hepatotoxins, trend daily LFTs and INR
-Continue with nutritional supplements, high-protein intake
-Addiction counseling resources in place
#Pancytopenia
-Suspected to be alcohol induced bone marrow suppression, reduction of thrombopoietin with liver disease
-Initially was pancytopenic, this morning her white cell count and hemoglobin have improved to normal range
-Platelet count is also uptrending though does still remain low
-Suspect improvement with abstinence from alcohol
#Hypotension
-Blood pressure has been low to borderline low most of time here, suspect related to liver disease and volume depletion
-Was started on 3 times daily on admission, most recent BP 103/68 mmHg
-Suspect this will improve with increased oral intake and reduced inflammation of liver
DVT prophylaxis: SCD
Diet: House
CODE STATUS: Full
Anticipated Discharge: Today
Subjective/Interval History
-
Date of Service: June 02, 2024
Seen and examined at the bedside. No acute events overnight.
She states she feels well this morning, has no complaints. She did have questions concerning things she should be doing outside of the hospital. I encouraged nutrition with high-protein intake, absolute alcohol cessation, and close follow-up with
the GI doctors as planned. Educated her that the labs done on 06/08 will help decide if steroids are working or if a liver transplant would need to be explored.
She denies any chest pain, shortness of breath, fevers or chills, nausea, vomiting, diarrhea, constipation, abnormal bleeding or bruising. She does still have some pruritus though not worsening.
Objective Data
-
Labs:
Laboratory Results
06/02/24
05:57
WBC 7.4
Hgb 11.9 L
Hct 33.2 L
Plt Count 100 L
PT 18.6 H
INR 1.54
Sodium 136
Potassium 3.9
Chloride 104
Carbon Dioxide 25
BUN 10
Creatinine 0.6
Glucose 110 H
Calcium 7.8 L
Total Bilirubin 19.8 H*
AST 195 H
ALT 51 H
Alkaline Phosphatase 145 H
Vital Signs:
Vital Signs
Temp Pulse Resp BP Pulse Ox
98.1 F 62 18 107/70 96
06/02/24 07:00 06/02/24 07:00 06/02/24 07:00 06/02/24 07:00 06/02/24 07:00
I&O
06/01/24 06/02/24 06/03/24
06:59 06:59 06:59
Intake Total 1800 / 1800 0 / 0
Balance 1800 / 1800 0 / 0
Review of Systems
-
All other systems: Reviewed and negative
Constitutional: Reports No Symptoms
Physical Exam
-
General: Well Nourished, No Apparent Distress and Comfortable
HEENT: Normocephalic, Atraumatic, Moist Mucous Membranes and Other (Bilateral scleral icterus)
Respiratory: Clear to Auscultation and Non Labored Respirations
Cardiac: Regular Rhythm and S1/S2; Negative Murmur or JVD
GI: Soft, Nontender, Nondistended and Normal Bowel Sounds
Musculoskeletal: No Clubbing, No Cyanosis and No Edema
Skin: Warm, Dry and Jaundice; Negative Rash
Neuro: AO x 3, Nonfocal/Grossly Intact and Central Nerve's Intact
Psych: Calm
Data Reviewed
-
Labs: Labs Reviewed by me and Discussed with Patient
[2024-06-02 11:00] VITALS: BP 109/73
--- NOTE | 2024-06-02 12:33 | W.PN.GI.CBS2 ---
Addendum entered and electronically signed by Nora Cervantes NP 06/03/24 12:50:
Clarified documentation for below: Acute alcoholic pancreatitis seen on CT scan this admission with no mention of chronic pancreatic changes.
Original Note:
Today's Communication / Plan
-
Continue prednisone 40 mg daily. Repeat labs on 06/08 (slip provided). Outpatient follow-up with GI and hepatology. Complete alcohol abstinence. No further inpatient recommendations, okay for discharge from GI standpoint. Will sign off.
Assessment / Plan
-
The patient is a 38-year-old female with a past medical history significant for alcohol abuse, insomnia, alcohol induced pancreatitis, prior alcoholic hepatitis, who presents to the emergency room with complaints of jaundice, nausea, and vomiting.
She reportedly has a history of ETOH abuse with prior ETOH hepatitis/pancreatitis prior to 2019. She had been sober for some time but had relapsed recently drinking heavily. On admission with marked abnormal labs with Na 128, K 2.8, bili 21.6, AST
268, ALT 52, alk phos 160, hbg 10.6, MCV 100.7, platelets 61,000, INR 1.7, albumin 3.2, lipase 401. US with HSM with fatty liver, CT with pancreatitis, hepatomegaly with nodular liver with concern for cirrhosis. Hepatosplenomegaly may be seen with
portal HTN but no PVT and small volume ascites. Due to her worsening liver functions and high discriminant function she was started on prednisolone 40 mg daily.
Problem list:
-ETOH hepatitis +/- underlying cirrhosis
-ETOH pancreatitis
-hx prior ETOH hepatitis/pancreatitis 2019 with treatment at [facility]- did not recall steroid use in past
-electrolyte imbalance (hyponatremia/hypokalemia)
-thrombocytopenia
-hypoalbuminemia
-coagulopathy
Recommendations:
-Symptoms likely secondary to alcoholic hepatitis with alcoholic pancreatitis and chronic liver dysfunction with underlying cirrhosis.
-Prednisone was initiated on 05/31: DF- 05/31 52.2, 06/01 52.8; MELD 3.0 05/31 28, 06/01 28
-Her LFTs are downtrending along with her bilirubin. Plan is to repeat her labs to obtain a Lille score after 7 day treatment on 06/08 - labs slips given to patient. Reinforced the importance on compliance with this. I advised her we will give her
further instructions after her repeat labs next Thursday but she should continue on prednisone 40 mg daily until that time.
-She has a 07/06 @ 11:30 with Bharati Julio PA-C
-OP follow up with hepatology - she is scheduled 07/13 at [facility]
-I advised her to follow a low-fat diet and can continue use of supplement such as boost or Ensure if needed
-I advised her to call her office if she is prescribed any new medications. Advised her to avoid hepatic toxic medications
-Strict alcohol abstinence also reinforced
-Further workup/management outpatient in regards to her cirrhosis findings
-No further inpatient recommendations from GI standpoint. Okay for discharge, with close outpatient follow-up as above
Subjective
Subjective
Date of Service: June 02, 2024
The patient was seen and examined at the bedside. She denies any overt complaints. Plan for discharge today. Her LFTs are downtrending.
Objective
Data Reviewed
Laboratory Data:
Laboratory Results
06/02/24 05:57
06/02/24 05:57
Laboratory Results
PT 18.6 Sec (11.4-14.6) H 06/02/24 05:57
INR 1.54 06/02/24 05:57
Phosphorus 3.6 mg/dl (2.5-4.5) 05/31/24 06:25
Magnesium 1.6 mg/dl (1.6-2.3) 05/31/24 06:25
Total Bilirubin 19.8 mg/dl (0.2-1.3) H* 06/02/24 05:57
AST 195 U/L (14-36) H 06/02/24 05:57
ALT 51 U/L (0-35) H 06/02/24 05:57
Alkaline Phosphatase 145 U/L (38-126) H 06/02/24 05:57
Lipase 252 U/L (23-300) 05/31/24 06:25
Vital Signs and I&O:
Vital Signs
Temp Pulse Resp BP Pulse Ox
98.2 F 67 18 109/73 96
06/02/24 11:00 06/02/24 11:00 06/02/24 11:00 06/02/24 11:00 06/02/24 11:00
I&O
06/01/24 06/02/24 06/03/24
06:59 06:59 06:59
Intake Total 1800 / 1800 2760 / 2760
Balance 1800 / 1800 2760 / 2760
Physical Exam
Physical Exam
HEENT: Other (Bilateral scleral icterus)
Cardiology: S1 and S2 (Regular rate/rhythm)
Pulmonary: Clear
GI: Soft, Distended (Mildly distended), Non Tender and Normal Bowel Sounds
Extremities: No Edema
Jaundice
--- NOTE | 2024-06-02 12:56 | W.DCSUMMARY ---
Discharge Summary
Discharge Data
Date of Admission: 05/31/24
Date of Discharge: 06/02/24
-
Pending Results: Yes
Additional Pending Results:
Lab tests to calculate dynamic Lille score on 06/08/2024
Hospital Course
Presented to the hospital with scleral icterus and jaundice, history of alcoholic hepatitis with significant alcohol abuse history. Chemistries and clinical presentation consistent with recurrent alcoholic hepatitis from ongoing substance abuse.
Had elevated MELD score >20, Maddrey's discriminant factor >52 correlating to a very poor prognosis. Was started on prednisolone 40 mg with improved LFTs, and clinical improvement. Was evaluated by gastroenterology, recommends repeat labs to
calculate dynamic Lille as an outpatient, possible consideration for OLT. Educated patient on necessity for absolute alcohol cessation, high protein diet, adherence to follow-up with marker machine. Prior to discharge she was arranged
resources for addiction counseling.
No signs of hepatorenal syndrome or encephalopathy while hospitalized.
She did have soft blood pressures consistent with significant portal hypertension. Was started on midodrine with adequate response to her blood pressure. Should continue with midodrine upon discharge, can consider discontinuing if portal
hypertension improves.
Discharge Plan
-
Patient Disposition: Home (Routine Discharge)
Discharge Diagnosis/Procedures: Alcoholic hepatitis
Condition: Fair
Diet: Supplements and Other diet
Additional Diets: High-protein, no alcohol
Activity: As tolerated
Driving Restrictions: As prior to admission
Bathing Restrictions: None
Blood Work: please obtain labs 06/08 for follow up for hepatitis, slips given to patient. Will need to call office 06/09 to review for continued steroids
Others Tests: follow up with [facility] as planned
Specialty Instructions: Weigh Daily- Call MD for wt gain/loss 3 lbs overnight/5 lbs in 1 week
Activity Restrictions/Additional Instructions:
After discharge from the hospital schedule follow-up appointment with your GI doctor and primary care physician.
Monitor home blood pressures. If BP becomes >140/90 mmHg then stop taking midodrine
Instructions: Cirrhosis
Referrals:
KAYE GANT MD [Family Provider] -
Bharati Julio PA-C [Specified Professional Personl] - 07/06/24 11:30 am (Please call to reschedule if you can not keep this appointment. If your insurance requires a referral please contact your primary care physician prior to your appointment. )
Additional Discharge Medication Instructions: Continue prednisolone 40 mg daily until told to stop by marker machine
Continue folic acid (vitamin B 9) daily
Continue thiamine (vitamin B1) daily
Continue midodrine 3 times daily for low blood pressure, monitor home blood pressures once daily
Prescriptions:
New
folic acid 1 mg Tablet
1 mg PO DAILY 30 Days Qty: 30 0RF
prednisolone sodium phosphate 15 mg/5 mL (3 mg/mL) Solution
40 mg PO DAILY 14 Days Qty: 186.666 0RF
midodrine 5 mg Tablet
5 mg PO TID@0800,1300,1800 30 Days Qty: 90 0RF
thiamine HCl (vitamin B1) 100 mg Tablet
100 mg PO BID 30 Days Qty: 60 0RF
Continued
trazodone 50 mg Tablet
50 mg PO HS
hydroxyzine HCl 25 mg Tablet
50 mg PO DAILYPRN PRN (Reason: anxiety)
melatonin 3 mg Tablet
6 mg PO HS
bismuth subsalicylate [Pepto-Bismol] 262 mg Tablet,Chewable
2 tab PO DAILYPRN PRN (Reason: gerd.stomach issuses)
Systane (PF) 0.4-0.3 % Dropperette
1 drp BOTH EYES TIDPRN PRN (Reason: dryness)
omeprazole 20 mg Tablet,Delayed Release (Dr/Ec)
20 mg PO DAILY
Discontinued
Semaine Uti Releif
1 cap PO DAILY
Discharge Orders:
Discharge Patient (As Directed); Ordered 06/02/24
Ordered By: Albert Lion
Discharge Date and Time
Print Language: YI
--- NOTE | 2024-06-02 14:55 | PN.CDI ---
CDI
- -
CDI:
Physician Documentation Request
Admit Date: 05/31/24 02:59
Dear Gastroenterology,
Clinical Indicators:
Patient admitted with Alcoholic hepatitis; presented with jaundice & nausea/vomiting.
PMH includes: ETOH hepatitis/pancreatitis 2019
06/02 GI PN, 'Symptoms likely secondary to alcoholic hepatitis with alcoholic pancreatitis and chronic liver dysfunction with underlying cirrhosis.'
Lipase
05/30/24
21:11
Lipase 401 H
Please clarify which of the following accurately represents the acuity of the alcoholic pancreatitis:
Acute alcoholic pancreatitis
Acute on Chronic alcoholic pancreatitis
Chronic alcoholic pancreatitis
Other, please specify
Use of terms such as suspected, likely, concern for, or probable (associated with a specific diagnosis that is being evaluated, monitored, or treated as if it exists) are acceptable and can be coded in the inpatient setting, when documented at the
time of discharge.
Thank you,
Elham Lomax RN BSN
CDI Specialist
available via tiger text
Please use your independent medical judgment in providing your response.
[2024-06-02 21:37] LABS: Hepatitis B Core Ab, IgM Negative (Negative); Hepatitis B Core Ab, Total Negative (Negative); Hepatitis B Surface Antibody Positive; Hepatitis B Surface Antigen Negative (Negative); Hepatitis C Antibody Negative (Negative)
[2024-06-02 21:41] LABS: Hepatitis A Antibody, Total Negative (Negative)
== END 2024-06-02 14:32 | disposition home or self-care (01) | DRG 432 ==
LOC: 4 WEST ACU 02:59
PROVIDERS: Hospitalist; Nurse Practitioner Adult Health; ADMITTING PHYSICIAN Internal Medicine; ATTENDING PHYSICIAN Internal Medicine; EMERGENCY PHYSICIAN Emergency Medicine; FAMILY PHYSICIAN Internal Medicine; OTHER PHYSICIAN Specialist
DX: K70.11 Alcoholic hepatitis with ascites (principal); K85.20 Alcohol induced acute pancreatitis without necrosis or infection; D61.818 Other pancytopenia; K70.31 Alcoholic cirrhosis of liver with ascites; I95.9 Hypotension, unspecified
CPT/HCPCS: 74174; 76700; 80053; 80306; 82010; 82077; 82140; 82248; 82607; 82728; 82746; 82977; 83540; 83550; 83690; 83735; 84100; 84703; 85025; 85027; 85610; 86704; 86705; 86706; 86708; 86709; 86803; 87340; 93005; 96361; 96374; 96375; 99285; Q9967

== ENCOUNTER 2024-06-05 12:19 | Inpatient (IN) | payer BC, SELFPAY ==
[2024-06-05] VITALS (13 sets, daily range): BP systolic 72–118; BP diastolic 64–81; BMI 27.6; BMI 26.5
[2024-06-05] MEDS: MORPHINE SULFATE 4 MG IV (09:02)
[2024-06-05] MEDS: ZOFRAN 4 MG IV (09:03)
[2024-06-05 09:21] LABS: % Basophils 0.3 % (0-2); % Eosinophils 0.2 % (0-6); % Lymphocytes 15.3 % (20.5-51.1); % Monocytes 4.5 % (1.7-9.3); % Neutrophils 77.7 % (42.2-75.2); Absolute Immature Granulocytes 0.3 10^3/uL (0-0.05); Absolute Lymphocytes 2.2 10^3/uL (1.2-3.4); Absolute Monocytes 0.7 10^3/uL (0.1-0.6); Absolute Neutrophils 11.2 10^3/uL (1.4-6.5); Hematocrit 41.6 % (37.0-47.0); Hemoglobin 14.9 g/dL (12.0-16.0); Mean Corp Hgb Conc. 35.8 g/dL (33.0-37.0); Mean Corpuscular Hgb 37.3 pg (27.0-31.0); Mean Platelet Volume 12.5 fL (7.4-10.4); Nucleated Red Blood Cells % 0 %; Platelet Count 159 10^3/uL (130-400); Red Cell Dist. Width 18.6 % (11.5-14.5); White Blood Cell Count 14.4 10^3/uL (4.8-10.8)
--- NOTE | 2024-06-05 09:35 | ED.GENMED ---
History of Present Illness
General
Chief Complaint: Abdominal Pain
Source: patient
Exam Limitations: none
Time Seen by Provider: 06/05/24 09:04
Nursing documentation reviewed up to this point in time: agreed with
History of Present Illness
History of Present Illness:
38-year-old female with past medical history of previous alcohol abuse no drinking in the past 2 and half weeks cirrhosis of the presenting to the emergency department today with concerns of severe abdominal pain worsening over the past few days.
She describes her abdomen is feeling very distended and diffusely uncomfortable. She has had continuous nausea. Denies any chest pain shortness of breath or fevers. Denies ever requiring paracentesis. She was here in the hospital admitted
discharged 3 days ago diagnosed with alcoholic hepatitis and pancreatitis she had some improvement and was discharged home. She claims the symptoms have been significantly worsening since and very severe today which prompted to come back.
Review of Systems
Review of Systems
Allergies reviewed?: Yes
All Other Systems: ROS reviewed and negative except as documented in HPI and ROS
Phy Exam
Physical Exam
Physical Exam:
GENERAL: Alert , in no apparent distress
EYE: pupils equal and reactive
NECK: Supple, no significant adenopathy.
ENT: o/p clr, mmm.
CARDIAC: Regular rate and rhythm .
LUNGS: Clear breath sounds bilaterally, no acute respiratory distress, no wheezes/rales/rhonchi
ABDOMEN: Distended abdomen vague diffuse tenderness no specific focal tenderness.
NEUROLOGICAL: Alert and oriented, no focal neuro deficits
SKIN: Warm and dry, skin intact.
MUSCULOSKELETAL: No edema, well perfused.
PSYCH: Normal and appropriate interaction.
Course
Orders/Labs/Results
Orders:
Orders
06/05/24 09:00
Morphine Sulfate 4 mg IV NOW STA
Ondansetron Injectable [Zofran] 4 mg IV NOW STA
06/05/24 09:07
Complete Blood Count/With Diff Urgent
Comprehensive Metabolic Panel Urgent
HCG, Serum Qualitative Screen Urgent
Comment: ADDON
Lipase Urgent
06/05/24 09:20
Add On- LAB Urgent
Tests Added?: HCG Qual
06/05/24 09:33
CT Abd/Pel (IV only)-DH only Urgent
Comment:
Reason For Exam: worsening abd pain distension, hx of cirrhosis
06/05/24 11:15
HYDROmorphone [Dilaudid] 1 mg IV NOW STA
06/05/24 12:06
Alcohol Routine
06/05/24 12:08
Admit/Transfer Patient As Directed
Co-Sign Provider:
Level of Care: Inpatient admission
Assign to:: Telemetry
Physician / Group: Albert Lion
Transfer to: Telemetry
Diagnosis: Alcoholic hepatitis
Reason for Telemetry: Arrhythmia
Date to Stop Telemetry: 06/08/24
Time to Stop Telemetry: 11:00
Reason for Hospitalization: Acute on chronic alcoholic hepatitis, recently discharged, return with worsening
labs
Expected length of stay greater than two midnights?: Yes
ELOS- Estimated Length of Stay in days: 3
I certify the patient meets the requirements for IP care: Yes
PRN Pain Medication Management As Directed
May give lesser potent ordered pain med per pt: Yes
preference::
Protocol:: Medication orders for pain may be administered in a
manner that supports deferring to patient preference
when the pt is:
- Requesting an ordered lesser potent pain medication.
Least to most potent pain medications are defined
as: acetaminophen < NSAID < tramadol < opioids
(morphine, oxycodone, hydromorphone).
- Requesting a lesser dose of the same medication IF
ORDERED.
- Requesting a less intrusive route of administration
if both routes are prescribed by the provider (PO <
IV).
06/05/24 12:10
Code Status As Directed
Resuscitation Status: Full Code
06/06/24 06:00
LFT [Yatyc-Sxth-Wwkmahl] IN AM
06/07/24 06:00
LFT [Jdlag-Jaah-Ycbhnbw] IN AM
06/08/24 06:00
LFT [Aotwm-Pvxc-Sutofor] IN AM
06/08/24 11:00
DC Protocol for Telemetry ONCE
06/09/24 06:00
LFT [Qxvik-Dcgr-Ennkezs] IN AM
06/10/24 06:00
LFT [Dewec-Flpd-Vrcsdrs] IN AM
Abnormal Lab Results
06/05/24
09:07
WBC 14.4 H 10^3/uL
(4.8-10.8)
RBC 4.00 L 10^6/uL
(4.20-5.40)
MCV 104.0 H fL
(81.0-99.0)
MCH 37.3 H pg
(27.0-31.0)
RDW 18.6 H %
(11.5-14.5)
MPV 12.5 H fL
(7.4-10.4)
Abs Immat Gran (auto) 0.3 H 10^3/uL
(0-0.05)
Absolute Neuts (auto) 11.2 H 10^3/uL
(1.4-6.5)
Absolute Monos (auto) 0.7 H 10^3/uL
(0.1-0.6)
Immature Gran % 2.0 H %
(0-0.5)
Neutrophils % 77.7 H %
(42.2-75.2)
Lymphocytes % 15.3 L %
(20.5-51.1)
BUN 18 H mg/dl
(7-17)
Glucose 103 H mg/dl
(70-99)
Total Bilirubin 27.0 H* mg/dl
(0.2-1.3)
AST 187 H U/L
(14-36)
ALT 79 H U/L
(0-35)
Alkaline Phosphatase 179 H U/L
(38-126)
Albumin 3.2 L g/dl
(3.5-5.0)
Lipase > 4000 H* U/L
(23-300)
06/05/24 09:07
06/05/24 09:07
Vital Signs
Initial and Last Documented VS:
Initial Vital Signs
Temp Pulse Resp Pulse Ox
97.8 F 117 18 99
06/05/24 08:41 06/05/24 08:41 06/05/24 08:41 06/05/24 08:41
Last Documented Vital Signs
Temp Pulse Resp BP Pulse Ox
97.8 F 95 19 93/70 97
06/05/24 08:41 06/05/24 12:00 06/05/24 12:00 06/05/24 12:00 06/05/24 12:00
MDM/Problems Addressed
MDM/Problems Addressed:
38-year-old female presenting to the emergency department today with concerns of diffuse abdominal pain. Recently admitted to the hospital for alcoholic hepatitis and pancreatitis worsening pain since discharge 3 days ago. Plan for repeated CT
scan and labs. Labs showing significant elevation to lipase as well as bilirubin level. Patient given additional pain medication will be admitted and GI consulted for further management. CT scan without specific emergent findings. But did show
potential pancreatic cyst as well as additional findings of gastritis and some ongoing abnormalities to the liver.
*Critical Care Note
Total Time (30-74mins, 75-104mins- exclusive of procedures): Not Applicable
ED Attending Note
-
Portions of this chart may have been created with voice recognition software.� Occasional wrong word or��sound alike� substitutions may have occurred due to the inherent limitations of voice recognition software.
Discharge Plan
Departure
Patient Disposition: Admit
Date of Disposition: 06/05/24
Time of Disposition: 12:27
Admit to: Med/Surg
Admit to doctor: Ayad
Presentation/result/management discussed w/ accepting MD/DO: Hospitalist
Patient with high blood pressure during this ER visit?: No
Condition: Good
Covid-19: Not Applicable
Discharge Problem:
Acute pancreatitis
Interventions
Interventions:
*Risk Screen - Suicide Last Done: 06/05/24 09:12
*General Assessment Last Done: 06/05/24 09:12
*Neglect/Abuse Screening Last Done: 06/05/24 09:12
ED- Fall Risk Assessment Last Done: 06/05/24 09:12
*ED COVID-19 Vaccine History Last Done: 06/05/24 09:12
CM-Ztgltd-Xycxiogjdj Assessment Last Done: 06/05/24 09:12
[2024-06-05 09:51] LABS: HCG, Serum Qualitative Screen Negative
[2024-06-05 09:57] LABS: ALT (SGPT) 79 U/L (0-35); AST (SGOT) 187 U/L (14-36); Albumin 3.2 g/dl (3.5-5.0); Alkaline Phosphatase 179 U/L (38-126); Blood Urea Nitrogen 18 mg/dl (7-17); Calcium 9.2 mg/dl (8.4-10.2); Carbon Dioxide 22 mmol/L (22-30); Chloride 104 mmol/L (98-107); Estimated Creatinine Clearance 108 ml/min; Glucose 103 mg/dl (70-99); Potassium 3.8 mmol/L (3.5-5.1); Sodium 141 mmol/L (135-145); Total Protein 6.8 g/dl (6.3-8.2); eGFR > 60.00
[2024-06-05 11:12] LABS: Lipase > 4000 U/L (23-300)
[2024-06-05] MEDS: DILAUDID 1 MG IV (11:23)
--- NOTE | 2024-06-05 12:13 | HPS.HSE ---
Family Physician
-
Family Physician: Tremayne Jones MD
Chief Complaint
-
Worsening abdominal pain and distention, recent discharge for alcoholic hepatitis
History of Present Illness
38-year-old female with alcoholic hepatitis/cirrhosis, significant alcohol abuse history that is presenting to the ED with worsening abdominal pain over the last few days. She states that her abdomen is very distended, diffusely uncomfortable.
Associated with continuous nausea though denies any vomiting thus far. She was discharged here recently on steroid course for alcoholic hepatitis with scheduled follow-up with GI for repeat labs and calculation of dynamic Lille. She denies any
alcohol use over the past 2-1/2 weeks. She denies any history of ascites or any previous paracenteses.
Upon arrival to the ED she was afebrile, hemodynamically stable, and on room air with SpO2 in the high 90s. Blood pressure was fairly soft though not qualified as hypotension. Labs in the ED show white count 14.4 with neutrophilic predominance,
total bilirubin 27, AST 187, ALT 79, ALP 179, lipase >[address] A/P with oral and IV contrast showed evidence of acute gastritis, moderate ascites, small bilateral pleural effusions, evidence of hepatic cirrhosis and
splenomegaly as well as a new pancreatic tail cystic lesion. Was given IV analgesia and Zofran in the ED.
Medical History
Past Medical History
Past Medical History: Reports Other (Alcohol use)
Additional Past Medical History:
Alcoholic hepatitis/cirrhosis
Past Surgical History: Reports None
Social History
Tobacco: Non-smoker
Alcohol: Former
Drug: None
Family History
Family History: Not pertinent and Other (Denies history of early liver cirrhosis within the family)
Allergies / Home Medications
Allergies reflects when Allergies were last updated in [employer].
Home Medications with original date entered in [employer]
Allergy/Medication List:
Allergies
Allergy/AdvReac Type Severity Reaction Status Date / Time
No Known Allergies Allergy Verified 06/05/24 09:14
Home Medications
hydroxyzine HCl 25 mg tablet 50 mg PO DAILYPRN PRN anxiety 05/30/24
trazodone 50 mg tablet 50 mg PO HS Sleep 05/30/24
bismuth subsalicylate 262 mg chewable tablet (Pepto-Bismol) 2 tab PO DAILYPRN PRN gerd.stomach issuses 05/31/24
melatonin 3 mg tablet 6 mg PO HS Sleep 05/31/24
omeprazole 20 mg tablet,delayed release 20 mg PO DAILY Gastrointestinal Issue 05/31/24
peg 400-propylene glycol (PF) 0.4 %-0.3 % eye drops in a dropperette (Systane (PF)) 1 drp BOTH EYES TIDPRN PRN dryness 05/31/24
folic acid 1 mg tablet 1 mg PO DAILY 1 month #30 tabs 06/02/24
midodrine 5 mg tablet 5 mg PO TID@0800,1300,1800 low BP 1 month #90 tabs 06/02/24
prednisolone sodium phosphate 15 mg/5 mL (3 mg/mL) oral solution 40 mg (13.3333 mL) PO DAILY Hepatitis 2 weeks #186.666 mL 06/02/24
thiamine HCl (vitamin B1) 100 mg tablet 100 mg PO BID 1 month #60 tabs 06/02/24
Review of Systems
-
A 12 point ROS was completed and negative except as noted: Yes
Constitutional: Reports No Symptoms
EENT: Reports No Symptoms
Respiratory: Reports No Symptoms
Cardiac: Reports No Symptoms
Abdomen/GI: Reports Abdominal Pain and Nausea; Denies Bloody Stools or Black Stools
: Reports No Symptoms
Musculoskeletal: Reports No Symptoms
Skin: Reports No Symptoms
Neurological: Reports No Symptoms
Endocrine: Reports No Symptoms
Hematologic/Lymphatic: Reports No Symptoms
Physical Exam
Vital Signs
Vital Signs
Temp Pulse Resp BP Pulse Ox
97.8 F 95 19 93/70 97
06/05/24 08:41 06/05/24 12:00 06/05/24 12:00 06/05/24 12:00 06/05/24 12:00
Physical Exam
General: Appears in Distress and Pain; No Respiratory Distress
HEENT: NormoCephalic, Moist mucous membranes, Atraumatic and Other (Bilateral scleral icterus present)
Respiratory: Clear and Non Labored Respirations; No Wheezes, Rales, Rhonchi or Crackles
Cardiac: S1/S2 and Regular Rhythm; No Murmur, Rub, Gallop, Peripheral Edema or JVD
GI: Normal Bowel Sounds, Tender (Generalized tenderness, no peritoneal signs), Distended, Organomegaly (Hepatomegaly) and Other
Musculoskeletal: No Clubbing and No Cyanosis
Skin: Warm, Dry and Jaundice; No Rash
Neuro: AO x 3, Nonfocal/grossly intact and Cranial Nerves Intact
Laboratory Results
-
06/05/24 09:07
06/05/24 09:07
Laboratory Results
Total Bilirubin 27.0 mg/dl (0.2-1.3) H* 06/05/24 09:07
AST 187 U/L (14-36) H 06/05/24 09:07
ALT 79 U/L (0-35) H 06/05/24 09:07
Alkaline Phosphatase 179 U/L (38-126) H 06/05/24 09:07
Lipase > 4000 U/L (23-300) H* 06/05/24 09:07
Data Reviewed
-
CT Scan: Report Reviewed by me and Discussed with Patient
Lab Data: Labs Reviewed by me and Discussed with Patient
Impression/Plan
-
#Alcoholic hepatitis
#Decompensated Liver cirrhosis
#New ascites
-Recently discharged from hospital with acute on chronic alcoholic hepatitis, was on steroid course at discharge
-Stated abdominal pain worsened, became more distended after she left the hospital this week
-Upon arrival LFTs showed T. bili 27, AST/ALT >2:1; CT showing hepatomegaly and features of cirrhosis
-Maddrey's DF score on most recent hospital stay >52, correlates with poor prognosis
-Unable to calculate MELD score currently as no PT or INR ordered in the ED; I added onto labs
-Initially showed response to steroid with downtrending LFTs, scheduled for dynamic Lille on 06/08
-CT showing new ascites is highly likely related to portal hypertension; no signs of HRS as of now
Plan
-Continue 40 mg prednisolone daily
-Start IV ceftriaxone empirically for SBP
-IR consult for diagnostic and therapeutic paracentesis
-Resume high-protein diet, nutritional supplements while here
-Trend daily LFTs
-GI consult
#Gastritis
-Seen on CT scan in the ED, clinical presentation consistent with gastritis as well as SBP
-Would expect that it is portal hypertensive gastropathy in the context of her cirrhosis
-Denies any gastrointestinal bleeding symptoms, hemoglobin stable and no dark stools
-Currently on an oral PPI as an outpatient
Plan
-Escalate home omeprazole to 40 mg Protonix IV daily
-Trend daily CBC and monitor for bleeding
-Consider twice daily IV PPI for signs of bleeding
#Pancreatitis
#Cystic lesion in the pancreatic tail
-Unclear if this is related to alcohol use, gallstone, other toxins
-With cystic lesion, cannot rule out pancreatic necrosis/pseudocyst
-Presented with abdominal pain, CT showing cystic pancreatic lesion, lipase >4000
-Did have a degree of pancreatitis on last hospital stay, lipase 400 then
-GI consulted as above
Plan
-Start IV fluids at 100 mL/h with goal Hct<44%
-As needed antiemetics and analgesics
-Ordered triglyceride level, IgG4 antibody for completeness
-Consider MRCP
#Hypotension
-Blood pressure has been low to borderline over her time in this hospital, likely related to portal hypertension physiology
-Was started on midodrine 3 times daily during last hospitalization which I will continue here
-No signs of hepatorenal syndrome, renal function stable since discharge
#Chronic alcohol use history
-States she has been sober for over 2 years
-Was started on thiamine and folate replacement last hospital stay
-Ordered alcohol levels to assess for ongoing consumption
DVT prophylaxis: SCD
Diet: House
CODE STATUS: Full
I will be admitting Heather according to telemetry for acute on chronic alcoholic hepatitis/cirrhosis with new onset of ascites. She is at high risk for morbidity and mortality related to her acute on chronic disease with potential for liver
failure and ultimately . She will require intensive monitoring of her liver function test, treatment with steroids, diagnostic and therapeutic paracentesis with IV antibiotics for SBP. I have spoken with the emergency department attending, GI
team attending in order to facilitate the care of this patient. Her prognosis is extremely guarded Maddrey's discriminant factor >52.
[2024-06-05] MEDS: LR 1000 IV (13:14)
[2024-06-05 13:37] LABS: INR 1.63; PT 19.2 Sec (11.4-14.6)
[2024-06-05 13:38] LABS: Alcohol None Detected
[2024-06-05] MEDS: PROTONIX IV 40 MG IV (13:38)
[2024-06-05] MEDS: PRELONE 40 MG PO (13:38)
[2024-06-05 14:06] LABS: Triglycerides 284 mg/dl (10-149)
[2024-06-05] MEDS: ROCEPHIN 1000 MG IV (14:17)
[2024-06-05] MEDS: STERILE WATER FOR INJECTION 10 ML IV (14:17)
[2024-06-05] MEDS: ProAmatine PO (15:30)
--- NOTE | 2024-06-05 16:46 | W.PN.UPDATE ---
Update Note
Progress Note Update
Paracentesis performed, yielding 1800 cc of serous fluid. Sent for laboratory analysis.
[2024-06-05 16:48] LABS: Body Fluid Mononuclear 89.5 %; Body Fluid Polymorphonuclear 10.5 %; Body Fluid WBC 19 /CUMM
[2024-06-05 16:57] LABS: Body Fluid Albumin < 1.0 g/dl; Body Fluid Protein < 2.0 g/dl
[2024-06-05 17:20] LABS: Body Fluid Second Tech ASW
[2024-06-05] MEDS: FLEXBUMIN 100 IV (17:45)
[2024-06-05] MEDS: ProAmatine 5 MG PO (17:48)
[2024-06-05] MEDS: VITAMIN B1 100 MG PO (19:29)
[2024-06-05] MEDS: MELATONIN 6 MG PO (21:46)
[2024-06-06] MEDS: ATARAX 50 MG PO (00:37)
[2024-06-06 03:15] VITALS: BP 103/69
[2024-06-06] MEDS: ZOFRAN 4 MG IV (03:26)
[2024-06-06 06:00] VITALS: BMI 26.8
[2024-06-06] MEDS: LR 1000 IV ×2 (06:08→15:20)
[2024-06-06 07:02] LABS: INR 1.53; PT 18.2 Sec (11.4-14.6)
--- NOTE | 2024-06-06 07:33 | CON.GI ---
Addendum entered and electronically signed by Lyudmila Stroud MD 06/06/24 17:45:
I saw and examined the patient.
The [employer] [employer] or PA's note was reviewed and I agree with the note.
Comment:
Pt with a hx of alcohol related cirrhosis, new onset ascites. She has recent pancreatitis and is on steroids for recent alcohol hepatitis. She came in with worsening abd distention and had tap that did not show SBP (1800 out with low wbc and high
SAAG)
abd: soft, nontender
impression:
h/o alcoholic hepatitis
new onset ascites s/p with low SAAG
cirrhosis by imaging
plan:
if renal function stable tomorrow start diurietics
continue prednisolone which was added on recent admission
will need elective EGD
lipase elevated but not high in ascitic fluid not likely pancreatic duct leak
trend lfts, coags
needs full alcohol abstinence
check afp
Addendum entered and electronically signed by Nora Cervantes NP 06/06/24 09:18:
Discussed case with Dr. Stroud.
Await amylase peritoneal fluid levels. Will need eventual MRI/MRCP.
Will add cholestyramine for itching.
Continue prednisolone. Calculate Lille score 06/08
Original Note:
Consultation
-
Date/Time Consultation Requested: 06/05/24 @ 12:45
Date/Time Consultation Performed: 06/06/24 @ 08:30
Requesting Provider: Dr. Albert Lion
Performing Provider: OLVIN Burciaga; Dr. Lyudmila Stroud
Reason for Consultation: Alcoholic hepatitis/cirrhosis, new ascites
Medical History
Chief Complaint / HPI
Chief Complaint: abdominal distention, pain
History of Present Illness:
Heather is a pleasant 38-year-old female with a past medical history significant for alcohol abuse, recent admission for alcoholic hepatitis, prior pancreatitis/alcoholic hepatitis in 2019, newly diagnosed cirrhosis likely secondary to alcohol
abuse, who presents to the hospital with complaints of abdominal pain and distention. Upon review of prior records, she was recently seen here at [facility] from 05/31-06/02 with alcoholic hepatitis, acute pancreatitis, and significantly
elevated bilirubin. She was ultimately started on prednisolone given her persistently elevated DF, with slightly downtrending bilirubin at the time of discharge. She also had evidence of pancreatitis on imaging and was advised on a low-fat diet at
discharge. She was pending repeat labs on 06/08 to calculate her Eliza score to see if she is responding to her steroids, but ultimately returned to the hospital due to worsening abdominal pain and distention. She does have a history of heavy
alcohol use. CT scan from prior admission showing nodular liver concerning for cirrhosis with hepatosplenomegaly. She reports that after being discharged she was feeling well, but the last several days has had increased abdominal distention. She
reports a constant pain to the middle of her abdomen radiating to her back. She reports that she was unable to get any relief therefore came to the emergency room. She continued on her prednisolone, with her last dose taken yesterday. She does
admit to nausea without vomiting. She has had significant itching throughout her body as well and took some hydroxyzine but this did not help. She denies any confusion or overt lethargy but does feel extremely tired as she has been unable to
sleep. She denies any lower extremity edema, headaches, dizziness, lightheadedness, chest pain, or shortness of breath. She denies any signs of bleeding such as melena, medic easier, or hematemesis. She reports that she was following a low-fat
diet as directed. She denies any further alcohol use. Routine labs on admission showed WBC 14,400, platelets 1 59,000, INR 1.53, total bilirubin 27, AST 27, ALT of 79, alk phos 179, triglycerides 284, lipase greater than 4000. Discriminant
function on admission was 55.5, today 46.3. Her MELD 3.[address] of the abdomen and pelvis with IV contrast only was obtained showing findings suggestive of acute gastritis, moderate abdominopelvic ascites, small right and tiny left
pleural effusions, liver findings consistent with cirrhosis, hepatic fatty infiltration of the liver, moderate hepatomegaly, mild splenomegaly, a contracted gallbladder, and a pancreatic tail cystic lesion. She underwent a paracentesis as well
which 1800 mL of ascitic fluid was removed. Fluid cell counts negative for SBP.
Allergies / Home Medications
Allergy/AdvReac Type Severity Reaction Status Date / Time
No Known Allergies Allergy Verified 06/05/24 09:14
�Medication �Instructions �Recorded
hydroxyzine HCl 25 mg tablet 50 mg PO DAILYPRN PRN anxiety 05/30/24
trazodone 50 mg tablet 50 mg PO HS Sleep 05/30/24
bismuth subsalicylate 262 mg 2 tab PO DAILYPRN PRN gerd.stomach 05/31/24
chewable tablet (Pepto-Bismol) issuses
melatonin 3 mg tablet 6 mg PO HS Sleep 05/31/24
omeprazole 20 mg tablet,delayed 20 mg PO DAILY Gastrointestinal 05/31/24
release Issue
peg 400-propylene glycol (PF) 0.4 1 drp BOTH EYES TIDPRN PRN dryness 05/31/24
%-0.3 % eye drops in a dropperette
(Systane (PF))
folic acid 1 mg tablet 1 mg PO DAILY 1 month #30 tabs 06/02/24
midodrine 5 mg tablet 5 mg PO TID@0800,1300,1800 low BP 06/02/24
1 month #90 tabs
prednisolone sodium phosphate 15 40 mg (13.3333 mL) PO DAILY 06/02/24
mg/5 mL (3 mg/mL) oral solution Hepatitis 2 weeks #186.666 mL
thiamine HCl (vitamin B1) 100 mg 100 mg PO BID 1 month #60 tabs 06/02/24
tablet
Review of Systems
-
History Source: Patient
Constitutional: Reports Fatigue and Sleep Disturbance
EENT: Reports No Symptoms
Respiratory: Reports No Symptoms
Cardiac: Reports No Symptoms
Abdomen/GI: Reports Abdominal Pain and Nausea
Musculoskeletal: Reports Other (back pain)
Skin: Reports Itching
Vital Signs
Temp Pulse Resp BP Pulse Ox
97.3 F 59 18 103/69 96
06/06/24 03:15 06/06/24 03:15 06/06/24 03:15 06/06/24 03:15 06/06/24 03:15
Physical Exam
Exam
General: Other (ill appearing female, +jaundice)
HEENT: Normocephalic, Atraumatic and Other (bilaterally scleral icterus)
Respiratory: Clear
Cardiac: S1/S2 and Regular Rhythm
Breast: Deferred by me
GI: Soft, Tender (+TTP LUQ) and Distended
Rectal: Deferred by Provider
Musculoskeletal: No Edema
Skin: Warm, Dry and Other (+jaundice)
Neuro: Awake, Alert and Oriented
Psych: Calm
Results
WBC 14.4 10^3/uL (4.8-10.8) H 06/05/24 09:07
Hgb 14.9 g/dL (12.0-16.0) D 06/05/24 09:07
Hct 41.6 % (37.0-47.0) 06/05/24 09:07
MCV 104.0 fL (81.0-99.0) H 06/05/24 09:07
Plt Count 159 10^3/uL (130-400) D 06/05/24 09:07
Absolute Neuts (auto) 11.2 10^3/uL (1.4-6.5) H 06/05/24 09:07
PT 18.2 Sec (11.4-14.6) H 06/06/24 06:25
INR 1.53 06/06/24 06:25
Sodium 141 mmol/L (135-145) 06/05/24 09:07
Potassium 3.8 mmol/L (3.5-5.1) 06/05/24 09:07
Chloride 104 mmol/L (98-107) 06/05/24 09:07
Carbon Dioxide 22 mmol/L (22-30) 06/05/24 09:07
BUN 18 mg/dl (7-17) H 06/05/24 09:07
Creatinine 0.7 mg/dL (0.6-1.0) 06/05/24 09:07
Calcium 9.2 mg/dl (8.4-10.2) 06/05/24 09:07
Total Bilirubin 27.0 mg/dl (0.2-1.3) H* 06/05/24 09:07
AST 187 U/L (14-36) H 06/05/24 09:07
ALT 79 U/L (0-35) H 06/05/24 09:07
Alkaline Phosphatase 179 U/L (38-126) H 06/05/24 09:07
Lipase > 4000 U/L (23-300) H* 06/05/24 09:07
Diagnostic Image Results:
06/05/24 CT A/P w/IV contrast only: IMPRESSION: Findings suggesting acute gastritis. Clinical correlation recommended. New. Moderate abdominopelvic ascites. Significantly progressed. Small right and tiny left pleural effusions. New. Findings
consistent with cirrhosis. Stable. Hepatic fatty infiltration. Stable. Moderate hepatomegaly. Stable. Mild splenomegaly. Stable. Contracted gallbladder. Stable. Pancreatic tail cystic lesion. Stable. This may be benign or malignant. This would
better be evaluated by a nonurgent MRI examination.
06/05/24 paracentesis: 1800mL fluid removed; PMN 10.5, WBC 19, fluid amylase is pending
Prior GI Procedures:
EGD: none
Colonoscopy: none
Assessment / Plan
-
Heather is a pleasant 38-year-old female with a past medical history significant for alcohol abuse, recent admission for alcoholic hepatitis, prior pancreatitis/alcoholic hepatitis in 2019, newly diagnosed cirrhosis likely secondary to alcohol
abuse, who presents to the hospital with complaints of abdominal pain and distention, found to have new onset ascites and worsening LFT's. CT showing pancreatic cystic lesion on the tail 5mm, acute gastritis, cirrhosis changes, moderate ascites.
Paracentesis 1800mL removed, fluid cell counts neg for SBP. Concern for possible PD leak v decompensated liver disease. DF 55.5 down to 46.3 today. MELD 3.0 score 26. She denies further alcohol use. She was compliant with prednisolone. IgG4 pending.
TG mildly elevated but not enough to cause pancreatitis.
Problem list:
-new onset ascites
-pancreatitis, lipase >4000
-acholic hepatitis, DF 55.5 (06/05) -->46.3 (06/06)
-cirrhosis, now decompensated with ascites, MELD 3.0 26
-CT suggesting gastritis
-Pancreatic cyst
-elevated LFT's, hepatitis serologies negative
-leukocytosis, resolved (likely hemoconcentrated d/t dehydration)
-thrombocytopenia 2/2 liver disease
-ETOH abuse
-macrocytic anemia
Recommendations:
-Etiology of current symptoms possibly 2/2 decompensated cirrhosis v pancreatic ductal leak/disturbance v worsening alcoholic hepatitis v other.
----Paracentesis 1800mL removed, no SBP. CT showing pancreatic cystic lesion in the tail, moderate ascites, cirrhosis changes, acute gastritis.
-Amylase levels of ascitic fluid is pending to evaluate for evidence of pancreatic duct leak
-No indication for antibiotics from GI standpoint, OK to d/c, will TT hospitalist
-Will discuss with Dr. Stroud regarding resuming prednisolone given no sign of ongoing infection or bleeding
-Consider MRI/MRCP for further evaluation pending above
-Will discuss need for diuretics with Dr. Stroud
-Ok for CLD, advance to low fat diet as tolerated
-IV fluids
-Continue PPI daily for gastritis seen on CT scan. Eventual OP EGD for varices screening
-Trend LFT's
-Daily MELD labs (CBC, CMP, PT/INR)
-Continue alcohol abstinence
-If any worsening condition, consider transfer to tertiary facility. At this time her numbers are improving.
-Will add medication for itching (cholestyramine has been see to improve this in liver disease, Benadryl is sedating and not ideal)
-Further management pending above
Data Reviewed
-
CT Scan: Report Reviewed by me and Discussed with Physician
Old Records: Reviewed
-
-
Thank you for consultation and allowing me to participate in the patient's care. Please call the supervisor commissary production GI physician during the after hours with any questions or concerns.
[2024-06-06 07:40] LABS: AST (SGOT) 163 U/L (14-36); Albumin 2.9 g/dl (3.5-5.0); Alkaline Phosphatase 129 U/L (38-126); Blood Urea Nitrogen 15 mg/dl (7-17); Calcium 8.3 mg/dl (8.4-10.2); Carbon Dioxide 22 mmol/L (22-30); Chloride 104 mmol/L (98-107); Estimated Creatinine Clearance > 125 ml/min; Glucose 56 mg/dl (70-99); Potassium 3.9 mmol/L (3.5-5.1); Sodium 139 mmol/L (135-145); Total Bilirubin 22.4 mg/dl (0.2-1.3); Total Protein 5.9 g/dl (6.3-8.2); eGFR > 60.00
[2024-06-06 07:42] VITALS: BP 106/70
[2024-06-06 07:52] LABS: ALT (SGPT) 72 U/L (0-35)
[2024-06-06 07:54] LABS: % Basophils 0.1 % (0-2); % Immature Granulocytes 1.1 % (0-0.5); % Lymphocytes 13.1 % (20.5-51.1); % Monocytes 3.6 % (1.7-9.3); % Neutrophils 82.1 % (42.2-75.2); Absolute Immature Granulocytes 0.1 10^3/uL (0-0.05); Absolute Lymphocytes 0.9 10^3/uL (1.2-3.4); Absolute Monocytes 0.3 10^3/uL (0.1-0.6); Absolute Neutrophils 5.7 10^3/uL (1.4-6.5); Hematocrit 32.9 % (37.0-47.0); Hemoglobin 11.9 g/dL (12.0-16.0); Mean Corp Hgb Conc. 36.2 g/dL (33.0-37.0); Mean Corpuscular Hgb 37.9 pg (27.0-31.0); Mean Corpuscular Volume 104.8 fL (81.0-99.0); Mean Platelet Volume 12.3 fL (7.4-10.4); Nucleated Red Blood Cells % 0 %; Platelet Count 82 10^3/uL (130-400); Red Blood Cell Count 3.14 10^6/uL (4.20-5.40); Red Cell Dist. Width 18.8 % (11.5-14.5)
[2024-06-06] MEDS: ProAmatine 5 MG PO ×3 (08:15→17:39)
[2024-06-06] MEDS: PROTONIX 40 MG PO (08:16)
[2024-06-06] MEDS: FOLVITE 1 MG PO (08:16)
[2024-06-06] MEDS: VITAMIN B1 100 MG PO ×2 (08:16→20:44)
[2024-06-06] MEDS: PRELONE 40 MG PO (08:19)
[2024-06-06] MEDS: QUESTRAN 4 GRAM PO (09:46)
--- NOTE | 2024-06-06 10:19 | W.PN.HOSP.TC ---
Today's Communication/Plan
-
see plan
Assessment / Plan
Assessment / Plan
CT A/P 06/05/24
IMPRESSION: Findings suggesting acute gastritis. Clinical correlation recommended. New.
Moderate abdominopelvic ascites. Significantly progressed
Small right and tiny left pleural effusions. New
Findings consistent with cirrhosis. Stable
Hepatic fatty infiltration. Stable
Moderate hepatomegaly. Stable
Mild splenomegaly. Stable
Contracted gallbladder. Stable
Pancreatic tail cystic lesion. Stable. This may be benign or malignant. This would better be evaluated by a nonurgent MRI examination
#Alcoholic hepatitis
#Decompensated Liver cirrhosis
#New ascites
-Recently discharged from hospital with acute on chronic alcoholic hepatitis, was on steroid course at discharge
-Stated abdominal pain worsened, became more distended after she left the hospital this week
-Upon arrival LFTs showed T. bili 27, AST/ALT >2:1; CT showing hepatomegaly and features of cirrhosis
-Maddrey's DF score on most recent hospital stay >52, correlates with poor prognosis
-Initially showed response to steroid with downtrending LFTs, scheduled for dynamic Lille on 06/08
Plan
-Continue 40 mg prednisolone daily
-s/p paracentesis without e/o SBP, OK to stop IV Ceftriaxone
- GI consult appreciated
-F/U amylase levels to ensure no PD leak
- add cholestyramine for itching
- calculate Lille score 06/08
-eventual MRI/MRCP
#Gastritis
-Seen on CT scan in the ED,
-Denies any gastrointestinal bleeding symptoms, hemoglobin stable and no dark stools
-Currently on an oral PPI as an outpatient
Plan
-Escalate home omeprazole to 40 mg Protonix IV daily
-Trend daily CBC and monitor for bleeding
#Pancreatitis
#Cystic lesion in the pancreatic tail
-Unclear if this is related to alcohol use, gallstone, other toxins
-With cystic lesion, cannot rule out pancreatic necrosis/pseudocyst
-Presented with abdominal pain, CT showing cystic pancreatic lesion, lipase >4000
-Did have a degree of pancreatitis on last hospital stay, lipase 400 then
-GI consulted as above
-eventual MRI/MRCP
Plan
-Start IV fluids at 100 mL/h with goal Hct<44%
-As needed antiemetics and analgesics
-Ordered triglyceride level, IgG4 antibody for completeness
#Hypotension
-Blood pressure has been low to borderline over her time in this hospital, likely related to portal hypertension physiology
-Was started on midodrine 3 times daily during last hospitalization which I will continue here
-No signs of hepatorenal syndrome, renal function stable since discharge
#Chronic alcohol use history
-States she has been sober for over 2 years
-Was started on thiamine and folate replacement last hospital stay
-alcohol level negative
Anemia
-patient likely hemoconcentrated on admit
DVT prophylaxis: SCD
Diet: House
CODE STATUS: Full
51 minutes spent on patient care
Anticipated Discharge: > 48 hours
Subjective/Interval History
-
Date of Service: June 06, 2024
feeling much better after paracentesis
no dizziness or lightheadedness
just tried cholestyramine to help with itching
Objective Data
-
Labs:
Laboratory Results
06/06/24
06:25
WBC 7.0
Hgb 11.9 L D
Hct 32.9 L
Plt Count 82 L D
PT 18.2 H
INR 1.53
Sodium 139
Potassium 3.9
Chloride 104
Carbon Dioxide 22
BUN 15
Creatinine 0.6
Glucose 56 L
Calcium 8.3 L
Total Bilirubin 22.4 H*
AST 163 H
ALT 72 H
Alkaline Phosphatase 129 H
Vital Signs:
Vital Signs
Temp Pulse Resp BP Pulse Ox
97.8 F 61 20 106/70 100
06/06/24 07:42 06/06/24 07:42 06/06/24 07:42 06/06/24 08:15 06/06/24 07:42
I&O
06/05/24 06/06/24 06/07/24
06:59 06:59 06:59
Intake Total 1440 / 1440
Balance 1440 / 1440
Review of Systems
-
History Source: Patient
All other systems: Reviewed and negative
Physical Exam
-
General: No Apparent Distress
HEENT: PERRLA
Respiratory: Clear to Auscultation; Negative Wheezes
Cardiac: Regular Rhythm and S1/S2
GI: Soft and Other (mildly distended, no rebound or guarding )
Musculoskeletal: No Edema
Skin: Warm and Dry; Negative Rash
Neuro: AO x 3
Psych: Calm
Data Reviewed
-
Diagnostic Radiology: Report Reviewed by me
Labs: Labs Reviewed by me
[2024-06-06 10:33] LABS: Body Fluid Amylase 317 U/L
[2024-06-06 11:18] VITALS: BP 110/69
[2024-06-06 11:24] LABS: Glucose - Point of Care 99 mg/dl (70-99)
[2024-06-06 15:07] VITALS: BP 102/68
--- NOTE | 2024-06-06 15:16 | CM ---
retail department manager reviewed patient's chart and met with patient and patient lives with her spouse in a 2nd floor apartment, 3 steps into building and 12 steps to apartment. Patient is independent with adl's and ambulation, patient drives.
retail department manager reviewed Alcohol use and patient reports that she met with [facility] about a week ago and they have provided patient with outpatient treatment options.
Pharmacy: [facility]
PCP: Dr. Jones
Plan; Home when stable.
[2024-06-06 15:21] LABS: Glucose - Point of Care 158 mg/dl (70-99)
[2024-06-06] MEDS: PEPTO-BISMOL 2 TABLET PO (17:39)
--- NOTE | 2024-06-06 18:30 | PTCARENOTE ---
pt complained of abdominal bloating after clear liquids, abdomen is soft and slightly distended. small relief with movement, pt requested Pepto-Bismol which she stated helped some.
[2024-06-06 19:27] VITALS: BP 113/70
[2024-06-06] MEDS: DILAUDID 0.5 MG IV (20:44)
[2024-06-06 21:12] LABS: Glucose - Point of Care 123 mg/dl (70-99)
[2024-06-06] MEDS: MELATONIN 6 MG PO (23:00)
[2024-06-06 23:33] VITALS: BP 109/62
[2024-06-07] VITALS (7 sets, daily range): BP systolic 71–129; BP diastolic 62–79; BMI 26.9
[2024-06-07] MEDS: LR 1000 IV (01:43)
[2024-06-07] MEDS: ATARAX 50 MG PO ×2 (01:44→23:47)
[2024-06-07] MEDS: DILAUDID 0.5 MG IV ×3 (02:53→20:55)
[2024-06-07] MEDS: BENADRYL ELIXIR 12.5 MG PO (05:23)
[2024-06-07 07:35] LABS: % Basophils 0.1 % (0-2); % Eosinophils 0.5 % (0-6); % Immature Granulocytes 0.9 % (0-0.5); % Lymphocytes 13.9 % (20.5-51.1); % Monocytes 5.4 % (1.7-9.3); % Neutrophils 79.2 % (42.2-75.2); Absolute Immature Granulocytes 0.1 10^3/uL (0-0.05); Absolute Monocytes 0.4 10^3/uL (0.1-0.6); Absolute Neutrophils 5.9 10^3/uL (1.4-6.5); Hematocrit 31.6 % (37.0-47.0); Hemoglobin 11.4 g/dL (12.0-16.0); Mean Corp Hgb Conc. 36.1 g/dL (33.0-37.0); Mean Corpuscular Hgb 37.3 pg (27.0-31.0); Mean Corpuscular Volume 103.3 fL (81.0-99.0); Mean Platelet Volume 12.1 fL (7.4-10.4); Nucleated Red Blood Cells % 0 %; Platelet Count 82 10^3/uL (130-400); Red Blood Cell Count 3.06 10^6/uL (4.20-5.40); Red Cell Dist. Width 18.6 % (11.5-14.5); White Blood Cell Count 7.5 10^3/uL (4.8-10.8)
[2024-06-07 07:44] LABS: INR 1.69; PT 19.7 Sec (11.4-14.6)
[2024-06-07] MEDS: QUESTRAN 4 GRAM PO ×2 (08:09→22:01)
[2024-06-07] MEDS: VITAMIN B1 100 MG PO ×2 (08:10→20:55)
[2024-06-07] MEDS: PROTONIX 40 MG PO (08:10)
[2024-06-07] MEDS: ProAmatine 5 MG PO ×3 (08:10→17:12)
[2024-06-07] MEDS: PRELONE 40 MG PO (08:10)
[2024-06-07] MEDS: FOLVITE 1 MG PO (08:11)
[2024-06-07 08:57] LABS: ALT (SGPT) 79 U/L (0-35); AST (SGOT) 154 U/L (14-36); Albumin 2.6 g/dl (3.5-5.0); Alkaline Phosphatase 140 U/L (38-126); Blood Urea Nitrogen 14 mg/dl (7-17); Calcium 8.3 mg/dl (8.4-10.2); Carbon Dioxide 24 mmol/L (22-30); Chloride 107 mmol/L (98-107); Direct Bilirubin 20.7 mg/dl (0.0-0.4); Estimated Creatinine Clearance 108 ml/min; Glucose 55 mg/dl (70-99); Potassium 3.7 mmol/L (3.5-5.1); Sodium 140 mmol/L (135-145); Total Bilirubin 23.2 mg/dl (0.2-1.3); Total Protein 5.5 g/dl (6.3-8.2); eGFR > 60.00
[2024-06-07 09:21] LABS: AFP Male/Tumor Marker 3.09 ng/ml
--- NOTE | 2024-06-07 09:47 | PTCARENOTE ---
Blood glucose from morning labs came back as 55, asymptomatic.
--- NOTE | 2024-06-07 09:48 | PTCARENOTE ---
HR went up to 140s twice while in bathroom washing, resolved on its own.
--- NOTE | 2024-06-07 10:42 | CM ---
CM reviewed chart. Pt w/phmx signification for alcohol abuse, recent admission for alcoholic hepatitis, prior pancreatitis/alcoholic hepatitis in 2020, newly diagnosed cirrhosis likely 2/2 alcohol abuse, who presented with c/o of abd pain and
distention. Now s/p IR paracentesis w/1800mL off. GI following. Pt has no skilled needs noted at this time. Anticipated dc is home. Pt has [facility] resources.
CM will continue to follow to ensure a safe and timely dc.
--- NOTE | 2024-06-07 11:12 | W.PN.HOSP.TC ---
Today's Communication/Plan
-
repeat paracentesis today
Assessment / Plan
Assessment / Plan
CT A/P 06/05/24
IMPRESSION: Findings suggesting acute gastritis. Clinical correlation recommended. New.
Moderate abdominopelvic ascites. Significantly progressed
Small right and tiny left pleural effusions. New
Findings consistent with cirrhosis. Stable
Hepatic fatty infiltration. Stable
Moderate hepatomegaly. Stable
Mild splenomegaly. Stable
Contracted gallbladder. Stable
Pancreatic tail cystic lesion. Stable. This may be benign or malignant. This would better be evaluated by a nonurgent MRI examination
#Alcoholic hepatitis
#Decompensated Liver cirrhosis
#New ascites
-Recently discharged from hospital with acute on chronic alcoholic hepatitis, was on steroid course at discharge
-Stated abdominal pain worsened, became more distended after she left the hospital this week
-Upon arrival LFTs showed T. bili 27, AST/ALT >2:1; CT showing hepatomegaly and features of cirrhosis
-Maddrey's DF score on most recent hospital stay >52, correlates with poor prognosis
-Initially showed response to steroid with downtrending LFTs, scheduled for dynamic Lille on 06/08
Plan
-Continue 40 mg prednisolone daily
-s/p paracentesis without e/o SBP, OK to stop IV Ceftriaxone
- GI consult appreciated
- amylase levels do not suggest pancreatic duct leak
- add cholestyramine for itching
- calculate Lille score 06/08
-eventual MRI/MRCP
- increased distention again today and given amylase low yesterday, OK to stop fludis --> will repeat paracentesis today
#Gastritis
-Seen on CT scan in the ED,
-Denies any gastrointestinal bleeding symptoms, hemoglobin stable and no dark stools
-Currently on an oral PPI as an outpatient
Plan
-Escalate home omeprazole to 40 mg Protonix IV daily
-Trend daily CBC and monitor for bleeding
#Pancreatitis - no clinical signs of this despite elevated lipase, OK to stop fluids
#Cystic lesion in the pancreatic tail
-GI consulted as above
-eventual MRI/MRCP
Plan
-As needed antiemetics and analgesics
-Ordered triglyceride level (284), IgG4 antibody for completeness
#Hypotension
-Blood pressure has been low to borderline over her time in this hospital, likely related to portal hypertension physiology
-Was started on midodrine 3 times daily during last hospitalization which I will continue here
-No signs of hepatorenal syndrome, renal function stable since discharge
#Chronic alcohol use history
-States she has been sober for over 2 years
-Was started on thiamine and folate replacement last hospital stay
-alcohol level negative
Anemia
-patient likely hemoconcentrated on admit
DVT prophylaxis: SCD
Diet: House
CODE STATUS: Full
51 minutes spent on patient care
Anticipated Discharge: > 48 hours
Subjective/Interval History
-
Date of Service: June 07, 2024
feels bloated especially after drinking clears, doesn't want to advance diet now
no chest pain
main complaint is itching which causes difficulty sleeping
Objective Data
-
Labs:
Laboratory Results
06/07/24
07:16
WBC 7.5
Hgb 11.4 L
Hct 31.6 L
Plt Count 82 L
PT 19.7 H
INR 1.69
Sodium 140
Potassium 3.7
Chloride 107
Carbon Dioxide 24
BUN 14
Creatinine 0.7
Glucose 55 L*
Calcium 8.3 L
Total Bilirubin 23.2 H*
AST 154 H
ALT 79 H
Alkaline Phosphatase 140 H
Vital Signs:
Vital Signs
Temp Pulse Resp BP Pulse Ox
97.9 F 59 20 118/68 99
08/27/24 07:24 06/07/24 07:24 06/07/24 07:24 06/07/24 07:24 06/07/24 07:24
I&O
06/06/24 06/07/24 06/08/24
06:59 06:59 06:59
Intake Total 1440 / 1440 2880 / 2880
Balance 1440 / 1440 2880 / 2880
Review of Systems
-
History Source: Patient
All other systems: Reviewed and negative
Physical Exam
-
General: No Apparent Distress
HEENT: PERRLA
Respiratory: Clear to Auscultation; Negative Wheezes
Cardiac: Regular Rhythm and S1/S2
GI: Soft and Other (mildly distended, no rebound or guarding )
Musculoskeletal: No Edema
Skin: Warm and Dry; Negative Rash
Neuro: AO x 3
Psych: Calm
Data Reviewed
-
Diagnostic Radiology: Report Reviewed by me
Labs: Labs Reviewed by me
--- NOTE | 2024-06-07 17:13 | W.PN.GI.CBS2 ---
Today's Communication / Plan
-
Add aldactone 50mg and lasix 20mg daily
Consider PT evaluation
Assessment / Plan
-
Heather is a pleasant 38-year-old female with a past medical history significant for alcohol abuse, recent admission for alcoholic hepatitis, prior pancreatitis/alcoholic hepatitis in 2019, newly diagnosed cirrhosis likely secondary to alcohol
abuse, who presents to the hospital with complaints of abdominal pain and distention, found to have new onset ascites and worsening LFT's. CT showing pancreatic cystic lesion on the tail 5mm, acute gastritis, cirrhosis changes, moderate ascites.
Paracentesis 1800mL removed, fluid cell counts neg for SBP. Concern for possible PD leak v decompensated liver disease. DF 55.5 down to 46.3 today. MELD 3.0 score 26. She denies further alcohol use. She was compliant with prednisolone. IgG4 pending.
TG mildly elevated but not enough to cause pancreatitis.
CTAP 06/05/24
Findings suggesting acute gastritis. pancreatic tail lesion
CTAP 05/31/24 There is mild hazy peripancreatic inflammatory stranding with small volume ascites along the anterior pararenal fascia bilaterally suggesting pancreatiti
Problem list:
-alcoholic hepatitis, DF 55.5 (06/05) -->46.3 (06/06)
-cirrhosis, now decompensated with ascites, MELD 3.0 26
-alcoholic pancreatitis
-new ascites
-CT suggesting gastritis
-Pancreatic cyst
-thrombocytopenia 2/2 liver disease
-ETOH abuse
-macrocytic anemia
Recommendations:
- Elevated amylase in ascitic fluid can be seen in pancreatitis
- Repeat para today for comfort
- Adv to regular diet
- PT evaluation
- Add aldactone 50mg and lasix 20mg daily
- Monitor renal function
- C/w prednisolone. Will calculate lille score on day 7
- ETOH cessation
- Protonix 40mg IV daily
- Will need OP EGD for EV screening
Poor prognosis
Will follow with you
Subjective
Subjective
Date of Service: June 07, 2024
She c/o ascites reaccumulating today. Abd pain improving
Objective
Data Reviewed
Laboratory Data:
Laboratory Results
06/07/24 07:16
06/07/24 07:16
Laboratory Results
PT 19.7 Sec (11.4-14.6) H 06/07/24 07:16
INR 1.69 06/07/24 07:16
Total Bilirubin 23.2 mg/dl (0.2-1.3) H* 06/07/24 07:16
AST 154 U/L (14-36) H 06/07/24 07:16
ALT 79 U/L (0-35) H 06/07/24 07:16
Alkaline Phosphatase 140 U/L (38-126) H 06/07/24 07:16
Amylase Cancelled 06/06/24 06:25
Lipase > 4000 U/L (23-300) H* 06/05/24 09:07
Vital Signs and I&O:
Vital Signs
Temp Pulse Resp BP Pulse Ox
97.9 F 59 19 101/65 97
06/07/24 15:26 06/07/24 15:26 06/07/24 15:26 06/07/24 15:26 06/07/24 15:26
I&O
06/06/24 06/07/24 06/08/24
06:59 06:59 06:59
Intake Total 1440 / 1440 2880 / 2880
Balance 1440 / 1440 2880 / 2880
[2024-06-07] MEDS: ALDACTONE 50 MG PO (18:06)
[2024-06-07] MEDS: LASIX 20 MG PO (18:07)
[2024-06-07] MEDS: MELATONIN 6 MG PO (22:01)
[2024-06-08 03:29] VITALS: BP 104/68
[2024-06-08] MEDS: DILAUDID 0.5 MG IV ×2 (03:31→11:52)
[2024-06-08 05:45] VITALS: BMI 27.0
[2024-06-08 07:05] VITALS: BP 104/64
[2024-06-08 07:59] LABS: % Basophils 0.1 % (0-2); % Eosinophils 0.4 % (0-6); % Immature Granulocytes 0.9 % (0-0.5); % Lymphocytes 13.6 % (20.5-51.1); % Monocytes 5.2 % (1.7-9.3); % Neutrophils 79.8 % (42.2-75.2); Absolute Immature Granulocytes 0.1 10^3/uL (0-0.05); Absolute Lymphocytes 1.1 10^3/uL (1.2-3.4); Absolute Monocytes 0.4 10^3/uL (0.1-0.6); Absolute Neutrophils 6.2 10^3/uL (1.4-6.5); Hematocrit 32.7 % (37.0-47.0); Hemoglobin 11.6 g/dL (12.0-16.0); Mean Corp Hgb Conc. 35.5 g/dL (33.0-37.0); Mean Corpuscular Hgb 37.1 pg (27.0-31.0); Mean Corpuscular Volume 104.5 fL (81.0-99.0); Mean Platelet Volume 12.7 fL (7.4-10.4); Nucleated Red Blood Cells % 0 %; Platelet Count 85 10^3/uL (130-400); Red Blood Cell Count 3.13 10^6/uL (4.20-5.40); Red Cell Dist. Width 18.6 % (11.5-14.5); White Blood Cell Count 7.7 10^3/uL (4.8-10.8)
[2024-06-08 08:00] LABS: INR 1.77; PT 20.7 Sec (11.4-14.6)
[2024-06-08 08:38] LABS: ALT (SGPT) 90 U/L (0-35); AST (SGOT) 147 U/L (14-36); Albumin 2.8 g/dl (3.5-5.0); Alkaline Phosphatase 160 U/L (38-126); Blood Urea Nitrogen 11 mg/dl (7-17); Calcium 8.2 mg/dl (8.4-10.2); Carbon Dioxide 25 mmol/L (22-30); Chloride 104 mmol/L (98-107); Direct Bilirubin 20.7 mg/dl (0.0-0.4); Estimated Creatinine Clearance > 125 ml/min; Glucose 55 mg/dl (70-99); Potassium 3.8 mmol/L (3.5-5.1); Sodium 138 mmol/L (135-145); Total Bilirubin 23.2 mg/dl (0.2-1.3); Total Protein 5.8 g/dl (6.3-8.2); eGFR > 60.00
[2024-06-08] MEDS: QUESTRAN 4 GRAM PO ×2 (08:45→23:03)
[2024-06-08] MEDS: VITAMIN B1 100 MG PO ×2 (08:46→19:37)
[2024-06-08] MEDS: LASIX 20 MG PO (08:46)
[2024-06-08] MEDS: ProAmatine 5 MG PO ×3 (08:47→17:31)
[2024-06-08] MEDS: ALDACTONE 50 MG PO (08:47)
[2024-06-08] MEDS: PROTONIX 40 MG PO (08:47)
[2024-06-08] MEDS: PRELONE 40 MG PO (08:47)
[2024-06-08] MEDS: FOLVITE 1 MG PO (08:48)
--- NOTE | 2024-06-08 10:33 | W.PN.GI.CBS2 ---
Today's Communication / Plan
-
Accepted for bed for transfer to [facility] for expedited transplant evaluation
Increase lasix to 40mg daily basis
Stop prednisolone as Lille non responder
Assessment / Plan
-
Heather is a pleasant 38-year-old female with a past medical history significant for alcohol abuse, recent admission for alcoholic hepatitis, prior pancreatitis/alcoholic hepatitis in 2019, newly diagnosed cirrhosis likely secondary to alcohol
abuse, who presents to the hospital with complaints of abdominal pain and distention, found to have new onset ascites and worsening LFT's. CT showing pancreatic cystic lesion on the tail 5mm, acute gastritis, cirrhosis changes, moderate ascites.
Paracentesis 1800mL removed, fluid cell counts neg for SBP. Concern for possible PD leak v decompensated liver disease. DF 55.5 down to 46.3 today. MELD 3.0 score 26. She denies further alcohol use. She was compliant with prednisolone. IgG4 pending.
TG mildly elevated but not enough to cause pancreatitis.
CTAP 06/05/24
Findings suggesting acute gastritis. pancreatic tail lesion
CTAP 05/31/24 There is mild hazy peripancreatic inflammatory stranding with small volume ascites along the anterior pararenal fascia bilaterally suggesting pancreatiti
Problem list:
-alcoholic hepatitis, DF 55.5 (06/05) -->46.3 (06/06)
-cirrhosis, now decompensated with ascites, MELD 3.0 25 (06/08)
-alcoholic pancreatitis
-new ascites
-CT suggesting gastritis
-Pancreatic cyst
-thrombocytopenia 2/2 liver disease
-ETOH abuse
-macrocytic anemia
Recommendations:
- Elevated amylase in ascitic fluid can be seen in pancreatitis
- Tolerating regular diet
- Increased lasix to 40mg daily. C/w aldactone 50mg daily basis
- PT evaluation
- Monitor renal function
- Stop prednisolone. Today is day 7 and she is not a responder
- ETOH cessation
- Protonix 40mg IV daily
- Will need OP EGD for EV screening
Her case d/w . They are agreeable for transfer to [facility] for expedited liver transplant workup. She has been sober for about 1 month. Above d/w Hospitalist. Accepting doc is Dr Janie Mckeon
Total Time Spent with Patient (in minutes): 57mins coordinating care with [facility] and transfer center. Family update
Subjective
Subjective
Date of Service: June 08, 2024
Her all over body itching improved. No paracentesis yesterday as not enough fluid to tap.
Objective
Data Reviewed
Laboratory Data:
Laboratory Results
06/08/24 06:45
06/08/24 06:45
Laboratory Results
PT 20.7 Sec (11.4-14.6) H 06/08/24 06:45
INR 1.77 06/08/24 06:45
Total Bilirubin 23.2 mg/dl (0.2-1.3) H* 06/08/24 06:45
AST 147 U/L (14-36) H 06/08/24 06:45
ALT 90 U/L (0-35) H 06/08/24 06:45
Alkaline Phosphatase 160 U/L (38-126) H 06/08/24 06:45
Amylase Cancelled 06/06/24 06:25
Lipase > 4000 U/L (23-300) H* 06/05/24 09:07
Vital Signs and I&O:
Vital Signs
Temp Pulse Resp BP Pulse Ox
98.3 F 59 14 104/64 99
06/08/24 07:05 06/08/24 07:05 06/08/24 07:05 06/08/24 07:05 06/08/24 07:05
I&O
06/07/24 06/08/24 06/09/24
06:59 06:59 06:59
Intake Total 2880 / 2880 1840 / 1840
Balance 2880 / 2880 1840 / 1840
Physical Exam
Physical Exam
GEN: No acute distress, conversant, pleasant chronically ill appearing
HEENT: icteric, extraocular movements intact, clear oropharynx without exudates
GI: soft, non-distended, not tender to palpation, normal active bowel sounds, no hepatosplenomegaly
EXT: warm, well perfused, trace edema bilaterally jaundiced
NEURO: AAOx3, non-focal
--- NOTE | 2024-06-08 10:37 | W.PN.HOSP.TC ---
Addendum entered and electronically signed by Albert Lion DO 06/09/24 17:14:
CDI clarification: Elevated lipase, asymptomatic, clinically did not meat criteria for acute pancreatitis
Original Note:
Today's Communication/Plan
-
Continue with prednisolone
Trend LFTs
Dynamic Lille score today
Assessment / Plan
Assessment / Plan
#Alcoholic hepatitis
#Decompensated Liver cirrhosis
#New ascites
-Recently discharged from hospital with acute on chronic alcoholic hepatitis, was on steroid course at discharge
-Stated abdominal pain worsened, became more distended after she left the hospital this week
-Upon arrival LFTs showed T. bili 27, AST/ALT >2:1; CT showing hepatomegaly and features of cirrhosis
-Maddrey's DF score on most recent hospital stay >52, correlates with poor prognosis
-Initially showed response to steroid with downtrending LFTs, scheduled for dynamic Lille on 06/08
-S/p paracentesis, no evidence of SBP, IV ceftriaxone is since been discontinued
-GI following
Plan
-Continue with 40 mg prednisone daily
-Continue with daily LFTs, dynamic Lille today
-Continue with cholestyramine for pruritus
-Plan for eventual MRCP
#Gastritis
-Seen on CT scan in the ED, likely in the context of her portal hypertension
-Denies any gastrointestinal bleeding symptoms, hemoglobin stable and no dark stools
-Currently on an oral PPI as an outpatient, transition to IV Protonix here
-CBC has been stable, no signs of active bleeding
#Elevated lipase without clinical signs of pancreatitis
#Cystic lesion in the pancreatic tail
-no clinical signs of this despite elevated lipase, status post aggressive IVF
-Triglycerides were in normal range, IgG4 level pending for completeness
-Remains on as needed antiemetics and analgesics
-Planning for MRCP as above
#Hypotension
-Blood pressure has been low to borderline over her time in this hospital, likely related to portal hypertension physiology
-Was started on midodrine 3 times daily during last hospitalization which I will continue here
-No signs of hepatorenal syndrome, renal function stable since discharge
#Chronic alcohol use history
-States she has been sober for over 2 years
-Was started on thiamine and folate replacement last hospital stay
-alcohol level negative
#Anemia
-patient likely hemoconcentrated on admit
-Hemoglobin has stabilized in the range of 11-12
-No signs of active bleeding
#Thrombocytopenia
-Secondary to reduced thrombopoietin in context of severe liver disease
-Will continue to trend daily CBC
DVT prophylaxis: SCD
Diet: House
CODE STATUS: Full
Anticipated Discharge: > 48 hours
Subjective/Interval History
-
Date of Service: June 08, 2024
Seen and examined at the bedside today. No acute events reported overnight.
She states she feels better today than previously. Denies significant abdominal distention or pain at this time. Attempt at second paracentesis yesterday, without enough fluid to successfully tap.
She denies any chest pain, shortness of breath, fevers or chills, nausea or vomiting, abnormal bleeding or bruising, urinary issues, paresthesias or weakness as of now.
Objective Data
-
Labs:
Laboratory Results
06/08/24
06:45
WBC 7.7
Hgb 11.6 L
Hct 32.7 L
Plt Count 85 L
PT 20.7 H
INR 1.77
Sodium 138
Potassium 3.8
Chloride 104
Carbon Dioxide 25
BUN 11
Creatinine 0.6
Glucose 55 L*
Calcium 8.2 L
Total Bilirubin 23.2 H*
AST 147 H
ALT 90 H
Alkaline Phosphatase 160 H
Vital Signs:
Vital Signs
Temp Pulse Resp BP Pulse Ox
98.3 F 59 14 104/64 99
06/08/24 07:05 06/08/24 07:05 06/08/24 07:05 06/08/24 07:05 06/08/24 07:05
I&O
06/07/24 06/08/24 06/09/24
06:59 06:59 06:59
Intake Total 2880 / 2880 1839
Balance 2880 / 2880 1839
Review of Systems
-
History Source: Patient
All other systems: Reviewed and negative
Physical Exam
-
General: No Apparent Distress and Comfortable
HEENT: Normocephalic, Atraumatic, Moist Mucous Membranes and Other (Scleral icterus present)
Respiratory: Clear to Auscultation and Non Labored Respirations
Cardiac: Regular Rhythm and S1/S2; Negative Murmur, Rub or Gallop
GI: Soft, Nontender, Nondistended and Normal Bowel Sounds
Musculoskeletal: No Clubbing, No Cyanosis and No Edema
Skin: Warm, Dry and Jaundice; Negative Rash
Neuro: AO x 3, Nonfocal/Grossly Intact and Central Nerve's Intact
Data Reviewed
-
Labs: Labs Reviewed by me and Discussed with Patient
[2024-06-08 11:17] VITALS: BP 107/72
--- NOTE | 2024-06-08 12:42 | CM ---
Chart reviewed and plan is to home when stable.
Plan; Home when stable, no needs.
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
--- NOTE | 2024-06-08 15:26 | W.PN.UPDATE ---
Update Note
Progress Note Update
Spoke with gastroenterology, patient has not progressed has helped on steroid therapy, dynamic Lille score not qualifying for response. She has been accepted for transfer to [facility] hepatology for expedited workup of
liver transplant. Consent for transfer is signed and in the chart. Discharge workflow was prepped, order for DC placed in case she has transportation overnight.
[2024-06-08 15:29] VITALS: BP 109/69
[2024-06-08] MEDS: DILAUDID 1 MG IV (19:38)
[2024-06-08 19:55] VITALS: BP 110/70
[2024-06-08 20:00] LABS: IgG Subclass 4 3 mg/dL (1-123)
[2024-06-08] MEDS: MELATONIN 6 MG PO (21:00)
[2024-06-08] MEDS: ATARAX 50 MG PO (22:02)
[2024-06-08 23:34] VITALS: BP 119/75
--- NOTE | 2024-06-08 23:53 | PTCARENOTE ---
Pt to be transferred to [facility], picking tech at 0115. Report called to KODY Chen at [place].
[2024-06-09] MEDS: DILAUDID 1 MG IV (00:15)
--- NOTE | 2024-06-09 01:59 | PTCARENOTE ---
Pt transferred to [place] with all belongings at this time.
--- NOTE | 2024-06-09 13:19 | PN.CDI ---
CDI
- -
CDI:
Physician Documentation Request
Admit Date: 06/05/24 12:19
Dear Doctor Ayad,
H&P contains a diagnosis of Pancreatitis.
GI consult states 'TG mildly elevated but not enough to cause pancreatitis' and 'pancreatitis, lipase >4000'
06/08 GI note states 'Elevated amylase in ascitic fluid can be seen in pancreatitis'
06/08 Hospitalist note states 'Elevated lipase without clinical signs of pancreatitis....Triglycerides were in normal range, IgG4 level pending for completeness'
IgG4 result 3
Please clarify the following:
____ - Pancreatitis was present
____ - Pancreatitis was ruled out
____ - Other
Use of terms such as suspected, likely, concern for, or probable (associated with a specific diagnosis that is being evaluated, monitored, or treated as if it exists) are acceptable and can be coded in the inpatient setting, when documented at the
time of discharge.
Thank you,
Ese Hernandez RN, BSN
CDI Specialist
tiger text
Please use your independent medical judgment in providing your response.
== END 2024-06-09 02:01 | disposition home or self-care (01) | DRG 433 ==
LOC: 4 WEST ACU 12:19
PROVIDERS: Physician Assistant; Radiology Vascular & Interventional Radiology; ADMITTING PHYSICIAN Internal Medicine; CONSULT PHYSICIAN Internal Medicine; EMERGENCY PHYSICIAN Student in an Organized Health Care Education/Training Program; FAMILY PHYSICIAN Family Medicine
PROC: 0W9G3ZZ Drainage of Peritoneal Cavity, Percutaneous Approach (ICD-10-PCS; 2024-06-05)
DX: K70.31 Alcoholic cirrhosis of liver with ascites (principal); K76.6 Portal hypertension; K86.2 Cyst of pancreas; K70.11 Alcoholic hepatitis with ascites; K29.00 Acute gastritis without bleeding; I95.9 Hypotension, unspecified; D69.59 Other secondary thrombocytopenia; F10.10 Alcohol abuse, uncomplicated; D53.9 Nutritional anemia, unspecified; K29.70 Gastritis, unspecified, without bleeding
CPT/HCPCS: 49083; 74177; 76705; 80048; 80053; 80076; 82042; 82077; 82105; 82150; 82248; 82787; 82962; 83690; 84157; 84478; 84703; 85025; 85610; 87015; 87070; 87205; 89051; 96374; 96375; 99285; P9047; Q9967